=== PATIENT | female | born 1950 | race Caucasian/White ===

== ENCOUNTER → 2017-07-11 | Outpatient (CLI) | payer OTHER ==
[~2017-07-11] MED LIST: ASCO1CAP3 PO; CHOLTAB3 PO; CLCC1250 PO; EZET10TA63 PO; HYDC25 PO; HYDR-5688 PO; LEVO-371
== END | disposition home or self-care (01) ==
LOC: C.CPL 13:43
PROVIDERS: ATTEND Surgery
DX: R22.2 Localized swelling, mass and lump, trunk (principal)

== ENCOUNTER → 2017-07-14 | Day surgery (SDC) | payer OTHER ==
[2017-07-13 11:35] VITALS: Ht 157.5 cm; Wt 54.5 kg
[~2017-07-14] VITALS: Ht 157.5 cm; Wt 54.5 kg
[~2017-07-14] MED LIST changes: +ATROPINE SULFATE 0.1 MG/ML 5ML SYR IV PRN; +CEFAZOLIN 2000 MG/60 ML D5W IV SCH; +EpHEDrine SULFATE INJ 50 MG/ML AMP IV PRN; +FENTANYL CITRATE INJ 50 MCG/1 ML 2 ML VIAL IV PRN; +FENTANYL CITRATE INJ 50 MCG/1 ML 2 ML VIAL ONE; +HYDROCODONE/ACETAMOPHEN 5/325MG TAB PO PRN; +HYDROmorphone INJ 1 MG/ML SYR IV PRN; +LACTATED RINGER'S 1000ML 1,000 ML IV SCH; +LIDOCAINE HCL 1% 20 ML VIAL ONE; +LIDOCAINE HCL 2% 2 ML VIAL (20MG/ML) ONE; +MIDAZOLAM HCL 1 MG/ML 2ML VIAL ONE; +ONDANSETRON INJ 2 MG/ML 2 ML VIAL IV PRN; +PROPOFOL IV EMULSION 10 MG/ML 20 ML VIAL IV ONE; +SODIUM CHLORIDE 0.9% 1000ML 1,000 ML IV SCH
--- NOTE | 2017-07-14 07:29 | History & Physical Bridge - [place] ---
H&P Re-Evaluation Bridge Note: I have examined the patient, reviewed the History & Physical and in the interval since the performance of the History & Physical I have noted the following changes of clinical significance: No changes noted
--- NOTE | 2017-07-14 08:26 | [facility] Operative Report ---
Operative Report Operative Date Jul 14, 2017. Pre-Operative Diagnosis Left chest wall mass Post-Operative Diagnosis Same as pre-op Procedure(s) Performed Left Chest Wall Mass Excision Surgeon Dr. Frye Raise Miner Surgeon(s) None Estimated Blood Loss Minimal Findings scar tissue, adipose Specimens A. Left chest wall mass Suture: Long spivey lateral, short spivey superior Blue dye spivey deep Anesthesia local/ sedation Complication(s) None Disposition Recovery Room / PACU I attest to the content of the Intraoperative Record and any orders documented therein. Any exceptions are noted below.
--- NOTE | 2017-07-14 08:31 | Discharge Instructions-SurgCtr ---
Discharge Instructions Date of Service Jul 14, 2017. Visit Reason for Visit: Left Chest Wall Mass Discharge Discharge Diagnosis / Problem: Lt chest wall mass Discharge Goals Goal(s): Decrease discomfort, Improve function, Improve disease control Activity Recommendations Activity Limitations: as noted below Lifting Limitations: no more than 25 pounds Exercise/Sports Limitations: until after follow-up appointment May Resume Sexual Activity: when tolerated Shower/Bathe: tomorrow Driving or Machine Use: resume 1 day after discharge SPECIAL CARE INSTRUCTIONS: * Cover incisions and change daily for comfort/drainage. * May use ibuprofen for pain as tolerated. * Expect some swelling and bruising. Call your doctor if: * Temperature above 101 degrees * Pain not relieved by pain medicine ordered * There is increased drainage or redness from any incision * You have any unanswered questions or concerns [phone]. FOLLOW UP VISIT: If not already scheduled, please call the office for a follow-up visit. for next week- some sutures OFFICE PHONE NUMBER: Dr. Frye Office Anesthesia . Post Anesthesia Instructions: If you have had General Anesthesia or IV Sedation: * Do not drive today. * Resume driving when surgeon permits. * Do not make important decisions or sign legal documents today. * Call surgeon for: 1. Temperature elevations greater than 101 degrees F. 2. Uncontrollable pain. 3. Excessive bleeding. 4. Persistent nausea and vomiting. 5. Medication intolerance (nausea, vomiting or rash). * For nausea and vomiting use only clear liquids such as: tea, soda, bouillon until nausea subsides, then gradually increase diet as tolerated. * If you have any concerns or questions, call your surgeon's office. If physician is unavailable and it is an emergency, call 911 or go to the nearest emergency room. . Diet Recommendations Home Diet: resume previous diet Procedures Procedures Performed: Left Chest Wall Mass Excision Pending Studies Studies pending at discharge: no Medical Emergencies . Who to Call and When: Medical Emergencies: If at any time you feel your situation is an emergency, please call 911 immediately. . Non-Emergent Contact Non-Emergency issues call your: Primary Care Provider, Surgeon . . "Provider Documentation" section prepared by Rio Frye. .
[2017-07-14 09:00] VITALS: TEMP 36.4
--- NOTE | 2017-07-14 09:01 | OPERATIVE REPORT ---
DATE OF OPERATION: 07/14/2017 NAME OF OPERATION: Excision of left chest wall mass. PREOPERATIVE DIAGNOSIS: Left chest wall mass. POSTOPERATIVE DIAGNOSIS: Same. STAFF SURGEON: Dr. Frye. ANESTHESIA: 1% plain lidocaine with sedation. PROCEDURE: The patient was brought in the operating room and placed on the operating table in supine position. Her left chest was prepped and draped in usual fashion. The patient had a soft lipomatous type mass just above the incision in the lateral chest wall at the anterior edge of the axilla. 1% plain lidocaine was used to anesthetize the tissue. Incision was made over this area, dissecting down. There was some scar tissue superiorly which did extend to the skin; however, this was dissected away down to the muscle and then the tissue removed. It was then marked with a long silk suture lateral, short silk suture superior and blue dye on the deep margin. At this point, the tissue was closed by reapproximating the deep tissue using 2-0 plain catgut suture then the skin using 5-0 Prolene suture. As a note, if additional tissue were to be removed we would have to take probably 2 cm of skin above this incision to incorporate the prior scar tissue. I attest to the content of the Intraoperative Record and any orders documented therein. Any exception s are noted below.
--- NOTE | 2017-07-14 09:07 | Anesthesiology Progress Note ---
Anesthesia Post Op Note Date & Time Jul 14, 2017 at 09:06 Vital Signs Pain Intensity: 0 Vital Signs Past 12 Hours Date Time Temp Pulse Resp B/P (MAP) Pulse Ox O2 Delivery O2 Flow Rate FiO2 07/14/17 08:56 138/64 07/14/17 08:56 138/64 07/14/17 08:54 51 10 07/14/17 08:54 54 10 98 07/14/17 08:54 54 10 98 07/14/17 08:54 51 10 07/14/17 08:51 136/65 07/14/17 08:51 136/65 07/14/17 08:49 51 14 98 07/14/17 08:49 51 14 98 07/14/17 08:49 51 14 07/14/17 08:49 51 14 07/14/17 08:48 55 9 07/14/17 08:48 54 9 98 07/14/17 08:47 36.2 53 16 136/65 97 Room Air 07/14/17 08:46 128/60 07/14/17 08:43 53 14 98 07/14/17 08:43 53 14 07/14/17 08:40 134/61 07/14/17 08:38 54 15 07/14/17 08:38 53 15 100 07/14/17 08:36 115/65 07/14/17 08:33 52 15 07/14/17 08:33 51 15 100 07/14/17 08:31 114/62 07/14/17 08:28 59 114/70 99 07/14/17 08:28 59 07/14/17 08:28 36.4 52 16 114/70 99 Mask 6 07/14/17 06:49 36.7 57 22 148/75 (99) 99 Room Air Notes Mental Status: alert / awake / arousable, participated in evaluation Pt Amnestic to Procedure: Yes Nausea / Vomiting: adequately controlled Pain: adequately controlled Airway Patency, RR, SpO2: stable & adequate BP & HR: stable & adequate Hydration State: stable & adequate Anesthetic Complications: no major complications apparent
[2017-07-14 09:28] VITALS: BP 151/72; PULSE 50; O2SAT 98
== END | disposition home or self-care (01) ==
LOC: X.SURG 06:40
PROVIDERS: ATTEND Surgery
DX: D36.7 Benign neoplasm of other specified sites (principal); Z85.3 Personal history of malignant neoplasm of breast; Z80.9 Family history of malignant neoplasm, unspecified

== ENCOUNTER 2017-10-11 20:01 | Emergency (ER) | payer OTHER ==
[~2017-10-11] VITALS: Ht 157.5 cm; Wt 58.9 kg
[~2017-10-11 20:01] MED LIST changes: -ATROPINE SULFATE 0.1 MG/ML 5ML SYR IV PRN; -CEFAZOLIN 2000 MG/60 ML D5W IV SCH; -EpHEDrine SULFATE INJ 50 MG/ML AMP IV PRN; -FENTANYL CITRATE INJ 50 MCG/1 ML 2 ML VIAL IV PRN; -FENTANYL CITRATE INJ 50 MCG/1 ML 2 ML VIAL ONE; -HYDROCODONE/ACETAMOPHEN 5/325MG TAB PO PRN; -HYDROmorphone INJ 1 MG/ML SYR IV PRN; -LACTATED RINGER'S 1000ML 1,000 ML IV SCH; -LEVO-371; +LEVO5TAB2; -LIDOCAINE HCL 1% 20 ML VIAL ONE; -LIDOCAINE HCL 2% 2 ML VIAL (20MG/ML) ONE; -MIDAZOLAM HCL 1 MG/ML 2ML VIAL ONE; -ONDANSETRON INJ 2 MG/ML 2 ML VIAL IV PRN; -PROPOFOL IV EMULSION 10 MG/ML 20 ML VIAL IV ONE; -SODIUM CHLORIDE 0.9% 1000ML 1,000 ML IV SCH
[2017-10-11 20:04] VITALS: TEMP 36.5; Ht 157.5 cm; Wt 58.9 kg
[2017-10-11] MEDS ORDERED: CALC200T PO (20:35)
[2017-10-11] MEDS ORDERED: HYDR12.55 PO (20:35)
[2017-10-11] MEDS ORDERED: CHOL400T PO (20:35)
[2017-10-11] MEDS ORDERED: NAPR1TAB9 PO (20:35)
[2017-10-11 20:38] LABS: BASO % 0.4 %; BASO ABS # 0.02 K/uL (0-0.2); COMPLETE YES; EOS % 3.3 %; HEMATOCRIT 41.4 % (37-47); IG% 0.2 %; LYMPH % 29.3 %; LYMPH ABS # 1.44 K/uL (1.2-3.4); MEAN CELL VOLUME 92.2 fL (80-100); MEAN CORPUSCULAR HEMOGLOBIN 30.5 pg (25-34); MEAN CORPUSCULAR HGB CONC 33.1 g/dl (32-36); MEAN PLATELET VOLUME 9.7 fL (7.4-10.4); MONO % 6.3 %; NEUT % 60.5 %; PLATELET COUNT 237 K/uL (130-400); RED BLOOD COUNT 4.49 M/uL (4.2-5.4); WHITE BLOOD COUNT 4.91 K/uL (4.8-10.8)
[2017-10-11 21:00] LABS: BLOOD UREA NITROGEN 17 mg/dl (7-18); CALCIUM 9.4 mg/dl (8.5-10.1); CARBON DIOXIDE 31 mmol/L (21-32); CHLORIDE 103 mmol/L (98-107); CREATININE 0.78 mg/dl (0.60-1.20); GLUCOSE 105 mg/dl (70-99); POTASSIUM 3.5 mmol/L (3.5-5.1); SODIUM 139 mmol/L (136-145)
--- NOTE | 2017-10-11 21:04 | DIAGNOSTIC IMAGING REPORT ---
SINGLE VIEW CHEST CLINICAL HISTORY: Fever. Sepsis. FINDINGS: An AP, portable, upright chest radiograph is compared to study dated 12/24/15. The examination is degraded by portable technique and patient rotation. The cardiomediastinal silhouette is unremarkable. There is atherosclerotic calcification of the thoracic aorta. The lungs and pleural spaces are clear. No pneumothorax is seen. The skeletal structures are osteopenic. There is moderate to severe S-shaped thoracolumbar scoliosis. IMPRESSION: No active disease in the chest. Electronically signed by: Gato Chilel M.D. 10/11/2017 9:03 PM Dictated Date/Time: 10/11/2017 9:02 PM
[2017-10-11 21:05] LABS: CKMB/CK RATIO 1.3 (0-3.0)
--- NOTE | 2017-10-11 22:03 | EMERGENCY ROOM VISIT NOTE ---
History Report prepared by Phyllis: Caio Gillespie Under the Supervision of: Dr. Aravind Moulton D.O. First contact with patient: 20:12 Chief Complaint: CHEST PAIN Stated Complaint: CHEST PAIN, SHORTNESS OF BREATH History of Present Illness The patient is a 67 year old female who presents to the Emergency Room with complaints of resolved chest pain that occurred around 1800 tonight. She states that she was just watching television, and the pain lasted for around ten minutes. She notes that it felt like her chest was swelling up, she had this intense pain, and she was short of breath. She denies any light headedness or leg pain and swelling, and she states that her heart was not racing. The patient states that this has never happened before, and she has not had any recent illnesses. She reports that she has a tumor removed from her left arm in June which turned out to be benign. Source of History: patient Onset: 1800 Position: chest Symptom Intensity: intense Quality: other (swelling) Timing: resolved Associated Symptoms: + SOB Review of Systems See HPI for pertinent positives & negatives. A total of 10 systems reviewed and were otherwise negative. Past Medical & Surgical Medical Problems: (1) Breast cancer Social History Smoking Status: Never Smoker Marital Status: Housing Status: lives with family Occupation Status: retired Current/Historical Medications Scheduled Ascorbic Acid (Vitamin C), 1 CAP PO QAM Calcium Carbonate-Vitamin D (Oscal 500/200 D-3), 1 TAB PO BID Cholecalciferol (Vitamin D), 1 TAB PO DAILY Ezetimibe (Zetia), 10 MG PO QPM Hydrochlorothiazide (Hydrochlorothiazide), 1 TAB PO DAILY Naproxen (Aleve), 440 MG PO PRN UD Scheduled PRN Levocetirizine Dihydrochloride (Xyzal), for prn allergies Allergies Coded Allergies: Adhesives (Verified Allergy, Intermediate, RASH, 07/14/17) Atorvastatin (Verified Allergy, Intermediate, generalized rash, 07/14/17) Latex1 -Allergic Contact Dermititis (Verified Allergy, Intermediate, RASH , 07/14/17) Diphenhydramine (Verified Adverse Reaction, Unknown, RESTLESS LEGS, ) Uncoded Allergies: CATS (Allergy, Severe, SNEEZING, TAKES BREATH AWAY, 10/11/17) ENVIRONMENTAL (Allergy, Severe, SNEEZING, SOB, 10/11/17) Physical Exam Vital Signs Date Time Temp Pulse Resp B/P (MAP) Pulse Ox O2 Delivery O2 Flow Rate FiO2 10/11/17 22:19 64 20 125/70 97 Room Air 10/11/17 21:06 70 20 131/64 98 Room Air 10/11/17 20:37 75 10/11/17 20:24 Room Air 10/11/17 20:04 36.5 88 18 150/73 97 Room Air Physical Exam CONSTITUTIONAL/VITAL SIGNS: Reviewed / noted above. GENERAL: Non-toxic in appearance. INTEGUMENTARY: Warm, dry, and [place]. HEAD: Normocephalic. EYES: without scleral icterus or trauma. ENT/OROPHARYNX: clear and moist. LYMPHADENOPATHY/NECK: Is supple without lymphadenopathy or meningismus. RESPIRATORY: Lungs clear and equal. CARDIOVASCULAR: Regular rate and rhythm. GI/ABDOMEN: Soft and nontender. No organomegaly or pulsatile mass. No rebound or guarding. Normal bowel sounds. EXTREMITIES: Warm and well perfused. BACK: No CVA tenderness. NEUROLOGICAL: Intact without focal deficits. PSYCHIATRIC: normal affect. MUSCULOSKELETAL: Normally developed with good muscle tone. Medical Decision & Procedures ER Provider Diagnostic Interpretation: Radiology results as stated below per my review and radiologist interpretation: SINGLE VIEW CHEST CLINICAL HISTORY: Fever. Sepsis. FINDINGS: An AP, portable, upright chest radiograph is compared to study dated 12/24/15. The examination is degraded by portable technique and patient rotation. The cardiomediastinal silhouette is unremarkable. There is atherosclerotic calcification of the thoracic aorta. The lungs and pleural spaces are clear. No pneumothorax is seen. The skeletal structures are osteopenic. There is moderate to severe S-shaped thoracolumbar scoliosis. IMPRESSION: No active disease in the chest. Electronically signed by: Gato Chilel M.D. 10/11/2017 9:03 PM Dictated Date/Time: 10/11/2017 9:02 PM Laboratory Results 10/11/17 20:15 Red Blood Count 4.49, Mean Corpuscular Volume 92.2, Mean Corpuscular Hemoglobin 30.5, Mean Corpuscular Hemoglobin Concent 33.1, Mean Platelet Volume 9.7, Neutrophils (%) (Auto) 60.5, Lymphocytes (%) (Auto) 29.3, Monocytes (%) (Auto) 6.3, Eosinophils (%) (Auto) 3.3, Basophils (%) (Auto) 0.4, Neutrophils # (Auto) 2.97, Lymphocytes # (Auto) 1.44, Monocytes # (Auto) 0.31, Eosinophils # (Auto) 0.16, Basophils # (Auto) 0.02 10/11/17 20:15 Test 10/11/17 20:15 White Blood Count 4.91 K/uL (4.8-10.8) Red Blood Count 4.49 M/uL (4.2-5.4) Hemoglobin 13.7 g/dL (12.0-16.0) Hematocrit 41.4 % (37-47) Mean Corpuscular Volume 92.2 fL (80-100) Mean Corpuscular Hemoglobin 30.5 pg (25-34) Mean Corpuscular Hemoglobin Concent 33.1 g/dl (32-36) Platelet Count 237 K/uL (130-400) Mean Platelet Volume 9.7 fL (7.4-10.4) Neutrophils (%) (Auto) 60.5 % Lymphocytes (%) (Auto) 29.3 % Monocytes (%) (Auto) 6.3 % Eosinophils (%) (Auto) 3.3 % Basophils (%) (Auto) 0.4 % Neutrophils # (Auto) 2.97 K/uL (1.4-6.5) Lymphocytes # (Auto) 1.44 K/uL (1.2-3.4) Monocytes # (Auto) 0.31 K/uL (0.11-0.59) Eosinophils # (Auto) 0.16 K/uL (0-0.5) Basophils # (Auto) 0.02 K/uL (0-0.2) RDW Standard Deviation 46.7 fL (36.4-46.3) RDW Coefficient of Variation 13.8 % (11.5-14.5) Immature Granulocyte % (Auto) 0.2 % Immature Granulocyte # (Auto) 0.01 K/uL (0.00-0.02) Anion Gap 6.0 mmol/L (3-11) Est Creatinine Clear Calc Drug Dose 53.9 ml/min Estimated GFR () 89.9 Estimated GFR (Non- 77.6 BUN/Creatinine Ratio 22.0 (10-20) Calcium Level 9.4 mg/dl (8.5-10.1) Total Creatine Kinase 67 U/L (26-192) Creatine Kinase MB 0.9 ng/ml (0.5-3.6) Creatine Kinase MB Ratio 1.3 (0-3.0) Troponin I < 0.015 ng/ml (0-0.045) Lipase 185 U/L (73-393) Laboratory results as stated above per my review. ECG Indication: chest pain Rate (beats per minute): 75 Rhythm: normal sinus Findings: no ectopy, other (No acute injury) ED Course 2011: Previous medical records were reviewed. The patient was evaluated in room B5. A complete history and physical examination was performed. 2204: On reevaluation, the patient is stable and doing well. I discussed the results and findings with the patient. She verbalized agreement of the treatment plan. She was discharged home. Medical Decision the differential was considered includes acute myocardial infarction, acute coronary syndrome, myocarditis, pericarditis, pericardial effusions /tamponad, esophageal perforation, thoracic aortic dissection, pulmonary embolism, pneumonia, pneumothorax, pancreatitis, shingles, acute cholecystitis, perforated abdominal viscus. This is a 67-year-old female who presents to the ED with a chief complaint of a fullness sensation in her chest associated with some shortness of breath that lasted for about 10 minutes and occurred around 1800 hrs. She denies any additional symptoms. She has not had these symptoms before. She states that she was watching TV when it occurred. The vital signs are stable. Physical exam reveals no significant abnormalities. Twelve-lead EKG reveals a normal sinus rhythm. No acute ischemic changes or dysrhythmia. CBC is normal, chemistry panel was unremarkable and troponin is negative. Chest x-ray did not show acute disease. The patient was told the results of the tests. She is felt to be stable for discharge and outpatient follow-up. Medication Reconcilliation Current Medication List: was personally reviewed by me Blood Pressure Screening Patient's blood pressure: Normal blood pressure Impression Primary Impression: Substernal precordial chest pain Scribe Attestation The scribe's documentation has been prepared under my direction and personally reviewed by me in its entirety. I confirm that the note above accurately reflects all work, treatment, procedures, and medical decision making performed by me. Departure Information Dispostion Home / Self-Care Referrals Vandana Hurtado D.O. (PCP) Forms Call Back Authorization, HOME CARE DOCUMENTATION FORM, IMPORTANT VISIT INFORMATION Patient Instructions My [facility] Additional Instructions Follow-up with your doctor for further care and evaluation in 1-2 days. Return to the emergency department for worsening or new symptoms or any concerns. You have been examined and treated today on an emergency basis only. This is not a substitute for, or an effort to provide, complete comprehensive medical care. It is impossible to recognize and treat all injuries or illnesses in a single emergency department visit. It is therefore important that you follow up closely with your doctor. Call as soon as possible for an appointment.
[2017-10-11 22:19] VITALS: BP 125/70; PULSE 64; O2SAT 97
== END 2017-10-11 22:23 | disposition home or self-care (01) ==
LOC: C.EDB 20:02
DX: R07.2 Precordial pain (principal); Z85.3 Personal history of malignant neoplasm of breast

== ENCOUNTER 2025-02-08 15:16 | Inpatient (IN) ==
--- OUTSIDE RECORDS SUMMARY | 2025-02-08 15:20 | External Medical Summary | Summary of Care ---
Author Name Unknown Organization [facility] Address [address] [place] [address] Phone [phone] Care Team Providers Care Tuyere Fitter Name Role Phone BryantVandana Primary Care Provider Reason for Visit * Reason Comments Mohs Surgery Pt presents today fo r Mohs surgery on R frontal scalp * Evaluate & Treat - Unlimited Visits (Within 30 days (routine)) - Authorized Specialty Diagnoses / Procedures Referred By Davonte tapia Referred To Contact Dermatology Diagnoses Squamous cell carcinoma in situ (SCCIS) of scalp [facility] [address] Phone: tel: fax: Referral ID Status Reason Start Date Expiration Date Visits Requested Visits Authorized [id number] Authorized Specialty Services Required 01/15/[phone] Encounter Details Date Type Department Care Team (Late st Contact Info) Description 01/16/2025 7:30 AM EST Office Visit [facility] [address] [place] [address] [facility]uro [facility] [address] Squamous cell carcinoma in situ (SCCIS) of scalp* Allergies Active Allergy Reactions Criticality Noted Date Comments Atorvastatin 01/30/2002 Lipitor-rash Diphenhydramine Other (Please comment) 10/22/20 19 Restless legs Latex 10/26/2020 Pollen Extract 10/26/2020 Simvastatin 04/23/2002 rash documented as of this encounter (statuses as of 01/30/2025) Medications CALCIUM CAPS 500 MG OR 2/day 03/04/20 02 Active HYDROCHLOROTHIAZIDE 12.5 MG PO CAPS One pill by mouth daily 05/16/20 11 Active ZETIA 10 MG PO TABSIndications:Dys lipidemia, goal to be determined TAKE 1 TABLET EVERY DAY 30 Tab 5 01/23/20 12 Active Additional Information Patient not taking.Reported on 01/03/2025 VITAMIN D 1000 UNITS PO CAPS 1 cap daily Acti ve Levocetirizine Dihydrochloride 5 MG Tablet 1 tab daily when needed 08/06/20 15 Active Ascorbic Acid (VITAMIN C) 100 MG Tablet Take 1 Tablet by mouth in the morning. Active Fluorouracil 5 % External Cream (Efudex)Indications :AK (actinic keratosis) apply to rough patches on the forearms and dorsal hands daily x 2-4 weeks. 40 g 1 04/13/20 21 Active Additional Information Patient not taking.Reported on 01/03/2025 Mupirocin 2 % External Ointment (Bactroban) Apply to affected areas on dorsal hands/arms twice daily as needed 22 g 01/28/20 22 Active Additional Information Patient not taking.Reported on 02/08/2024 Triamcinolone Acetonide 0.1 % External Ointment (Aristocort)Indicat ions:Actinic keratosis apply to affected areas on hands twice daily as needed 80 g 1 01/13/20 23 Active Additional Information Patient not taking.Reported on 06/22/2023 hydrOXYzine HCl 25 MG Oral Tablet Take 1 Tablet by mouth at bedtime. As needed for itching 30 Tablet 5 01/24/20 23 Active Fluocinonide 0.05 % External CreamIndications:De rmatitis Apply to itching spots on the legs as needed for itching. 30 g 1 10/10/20 23 Active Additional Information Patient not taking.Reported on 01/03/2025 Mupirocin 2 % External Ointment (Bactroban) Apply to wound on left lower leg with bandage daily until healed 22 g 07/23/20 24 Active Additional Information Patient not taking.Reported on 01/03/2025 documented as of this encounter (statuses as of 01/30/2025) Active Problems Problem Noted Date Diagnosed Date History of nonmelanoma skin cancer 08/14/2017 Dyslipidemia, goal LDL below 160 01/11/2012 M-NEOPLASM, FEMALE BREAST NOS- LEFT/ Bilateral m astectomy 05/16/2011 NONALLERGIC RHINITIS 08/27/2004 Tibial torsion 05/03/2004 Menopause 10/05/1998 Edema 02/23/1998 documented as of this encounter (statuses as of 01/30/2025) Resolved Problems Problem Noted Date Diagnosed Date Resolved Date ADVANCE DIRECTIVE INFORMATION 01/18/2006 09/23/2024 Overview (01/18/2006): No, Advance Directive brochure given to patient. Dyslipidemia, goal to be determined 01/14/2005 01/11/2012 documented as of this encounter (statuses as of 01/30/2025) Immunizations Name Administration Dates Next Due COVID-19 mRNA, LNP-s, No Pre serve, 2-Dose Series (Pfizer) 02/15/2021,01/19/2021 PPD 01/11/2012 Pneumococcal Polysaccharide PPV23 (Pneumovax) Seasonal Influenza Vac., MDV, IM, 0.5 mL (Fluzon e) 09/21/2010,08/27/2009 TDAP, Age 7 and older, IM (Adacel) 01/11/2012 documented as of this encounter Social History Tobacco Use Types Packs/Day Years Used Date Smoking Tobacco: Never Smokeless Tobacco: Never Alcohol Use Standard Drinks/Week Comments Yes 0 (1 standard drink = 0.6 oz pur e alcohol) occassional Comments No Sex and Gender Information Value Date Recorded Sex Assigned at Not on file Legal Sex Female 7:12 AM EST Gender Identity Not on file Sexual Orientation Not on file documented as of this encounter Last Filed Vital Signs Vital Sign Reading Time Taken Comments Blood Pressure - - Pulse - - Temperature 36.4 C (97.5 F) 01/16/2025 7:29 AM ES T Respiratory Rate - - Oxygen Saturation - - Inhaled Oxygen Concentration - - Weight - - Height - - Body Mass Index - - documented in this encounter Progress Notes * Kailey Mauro MD - 01/16/2025 7:30 AM EST [facility] Mohs Surgery Note (See separate transcribed operative note for further detail) History: Cat Christensen is a 74 year old patient seen for evaluation and management of the following lesion: B. Skin, right frontal scalp, shave: Squamous cell carcinoma, at least in situ, with deep follicular extension (see comment) Comment: The lesion is transected at the deep margin limiting evaluation of the base. Patient also has several nearby lesions of concern on her scalp. Patient problem list reviewed. Patient medication/allergy lists reviewed. Examination: Cat Christensen is alert, oriented and appears well and in no distress. The patient's skin is remarkable for: Right frontal scalp: 2.5 x 2.0 cm eroded plaque Right central scalp: 1.9 x 1.3 cm scaly plaque Right frontal scalp, medial: 1.3 x 1.0 cm scaly plaque Right hairline: 1.6 cm x 1.2 cm pink scaly eroded plaque Impression/Plan: squamous cell carcinoma in situ - right frontal scalp MMS Standard Mohs micrographic technique was utilized to treat this tumor. Microscopic examination of the specimen allowed the Mohs surgeon, whose dual role is to function as both surgeon and pathologist, to precisely identify the location of any remaining tumor or ascertain that the tissue margins were free of tumor. This process of excision of remaining tumor, mapping, and histologic exam was repeated until the tumor was excised completely. Patient identified, procedure verified, site identified and verified with the patient. Time out completed. Surgical removal of the lesion discussed with the patient (risks and benefits, including scarring and the possibility of infection, bleeding, recurrence or potential for further treatment). I have specifically identified the site with the patient. I have discussed the fact that the patient will have a scar after the procedure regardless of granulation or repair with sutures. I have discussed that the repair options can range from granulation in some cases to linear or curvilinear closures to larger flaps or grafts. There is a risk of injury to nerves causing temporary or permanent numbness or the inability to move muscles fully. Questions answered and verbal and written consent was obtained. 2 stage(s) Anesthetic: 0.05% lidocaine with 1:100,000 epinephrine. Repair: Purse-string and directional guiding sutures (layered repair) (see separate operative report for details) Absorbable sutures 2. Skin lesion, right central scalp. DDx included actinic keratosis vs squamous cell carcinoma in situ/squamous cell carcinoma - lesion biopsied today, read in Mohs lab on frozen sections, diagnosed as squamous cell carcinoma in situ, and subsequently treated with Mohs micrographic surgery today Shave Biopsy of the lesion noted above to establish and confirm diagnosis. The procedure, risks, benefits, alternatives and expected outcomes were discussed with the patient and consent was obtained.Time out called. Patient identified, procedure verified, site identified and verified. Patient and staff present in agreement. Area prepped with alcohol and anesthetized with 0.5% lidocaine with epinephrine at 1:200,000 concentration. Biopsy of lesion performed. 20% AlCl and bandaging applied. Specimen sent to Mohs lab for frozen sections. Specimen # [id number] BIOPSY NUMBER/TYPE/SITE: [id number], shave biopsy, right central scalp GROSS DESCRIPTION OF SPECIMEN: Received is a specimen of tissue labelled corresponding to the site listed. MICROSCOPIC DESCRIPTION OF SPECIMEN: Focal epidermal full-thickness squamous atypia is present in this specimen. Dermis is not affected in sections examined. MICROSCOPIC DIAGNOSIS: squamous cell drvdqpywh-uy-zajn squamous cell jhnwytpnu-we-ynry - right central scalp MMS Standard Mohs micrographic technique was utilized to treat this tumor. Microscopic examination of the specimen allowed the Mohs surgeon, whose dual role is to function as both surgeon and pathologist, to precisely identify the location of any remaining tumor or ascertain that the tissue margins were free of tumor. This process of excision of remaining tumor, mapping, and histologic exam was repeated until the tumor was excised completely. Patient identified, procedure verified, site identified and verified with the patient. Time out completed. Surgical removal of the lesion discussed with the patient (risks and benefits, including possibility of scarring, infection, recurrence or potential for further treatment). I have specifically identified the site with the patient. I have discussed the fact that the patient will have a scar after the procedure regardless of granulation or repair with sutures. I have discussed that the repair options can range from granulation in some cases to linear or curvilinear closures to larger flaps or grafts. There is a risk of injury to nerves causing temporary or permanent numbness or the inability to move muscles fully. Questions answered and verbal and written consent was obtained. 1 stage(s) Anesthetic: 0.05% lidocaine with 1:100,000 epinephrine. Repair: purse-string suture and directional guiding sutures (layered repair) (see separate operative report for details) Absorbable sutures 3. Skin lesion, right frontal scalp, medial. DDx included actinic keratosis vs squamous cell carcinoma in situ/squamous cell carcinoma - lesion biopsied today, read in Mohs lab on frozen sections, diagnosed as squamous cell carcinoma in situ, and subsequently treated with Mohs micrographic surgery today Shave Biopsy of the lesion noted above to establish and confirm diagnosis. The procedure, risks, benefits, alternatives and expected outcomes were discussed with the patient and consent was obtained.Time out called. Patient identified, procedure verified, site identified and verified. Patient and staff present in agreement. Area prepped with alcohol and anesthetized with 0.5% lidocaine with epinephrine at 1:200,000 concentration. Biopsy of lesion performed. 20% AlCl and bandaging applied. Specimen sent to Mohs lab for frozen sections. Specimen # [id number] BIOPSY NUMBER/TYPE/SITE: [id number], shave biopsy, right frontal scalp, medial GROSS DESCRIPTION OF SPECIMEN: Received is a specimen of tissue labelled corresponding to the site listed. MICROSCOPIC DESCRIPTION OF SPECIMEN: Focal epidermal full-thickness squamous atypia is present in this specimen. Dermis is not affected in sections examined. MICROSCOPIC DIAGNOSIS: squamous cell ecqxyjvqj-ar-dwql squamous cell cavwavybq-ze-azan - right frontal scalp, medial MMS Standard Mohs micrographic technique was utilized to treat this tumor. Microscopic examination of the specimen allowed the Mohs surgeon, whose dual role is to function as both surgeon and pathologist, to precisely identify the location of any remaining tumor or ascertain that the tissue margins were free of tumor. This process of excision of remaining tumor, mapping, and histologic exam was repeated until the tumor was excised completely. Patient identified, procedure verified, site identified and verified with the patient. Time out completed. Surgical removal of the lesion discussed with the patient (risks and benefits, including possibility of scarring, infection, recurrence or potential for further treatment). I have specifically identified the site with the patient. I have discussed the fact that the patient will have a scar after the procedure regardless of granulation or repair with sutures. I have discussed that the repair options can range from granulation in some cases to linear or curvilinear closures to larger flaps or grafts. There is a risk of injury to nerves causing temporary or permanent numbness or the inability to move muscles fully. Questions answered and verbal and written consent was obtained. 2 stage(s) Anesthetic: 0.05% lidocaine with 1:100,000 epinephrine. Repair: purse-string suture and directional guiding sutures (layered repair) (see separate operative report for details) Absorbable sutures 4. Skin lesion, right hairline. DDx included actinic keratosis vs squamous cell carcinoma in situ/squamous cell carcinoma - lesion biopsied today, read in Mohs lab on frozen sections, diagnosed as squamous cell carcinoma in situ, and subsequently treated with curettage today Shave Biopsy of the lesion noted above to establish and confirm diagnosis. The procedure, risks, benefits, alternatives and expected outcomes were discussed with the patient and consent was obtained.Time out called. Patient identified, procedure verified, site identified and verified. Patient and staff present in agreement. Area prepped with alcohol and anesthetized with 0.5% lidocaine with epinephrine at 1:200,000 concentration. Biopsy of lesion performed. 20% AlCl and bandaging applied. Specimen sent to Mohs lab for frozen sections. Specimen # [id number] BIOPSY NUMBER/TYPE/SITE: [id number], shave biopsy, right hairline GROSS DESCRIPTION OF SPECIMEN: Received is a specimen of tissue labelled corresponding to the site listed. MICROSCOPIC DESCRIPTION OF SPECIMEN: Focal epidermal full-thickness squamous atypia is present in this specimen. Dermis is not affected in sections examined. MICROSCOPIC DIAGNOSIS: squamous cell lhdameadl-qy-tmlt squamous cell kyktebpad-ir-xdvd - right hairline Curettage of the lesion . The procedure, risks, benefits, alternatives and expected outcomes were discussed with the patient and consent was obtained. Patient identified, procedure verified, site identified and verified. Confirmed immediately prior to procedure. Area prepped with alcohol and anesthetized using 0.5% lidocaine with epinephrine at 1:200,000 concentration. Curettage performed for cure. 20% AlCl and bandaging applied. Patient instructed in routine post-op care. Size of lesion: 1.6 cm Size of wound after curettage: 2.2 cm Wound care was discussed verbally, demonstrated and printed wound instructions given as well as wound care supplies. Patient instructed to call with questions or concerns. Personal contact information provided. Follow-up: 4 weeks Kailey Mauro MD Associate, Mohs Micrographic Surgery & Dermatologic Surgery 01/16/2025 documented in this encounter Nursing Notes * Margo Borrero LPN - 01/16/2025 7:30 AM EST Chief Complaint Patient presents with Mohs Surgery Pt presents today for Mohs surgery on R frontal scalp Referral Doctor: Elie Hypertension History: Yes, refer to medication information for treatment. Diabetes History: No Thyroid History: No Bleeding Tendency: No Artificial Valve or Joint: no Pacemaker: no Defibrillator: no Hepatitis/HIV Exposure: No Smoking: no Consent signed yes documented in this encounter Plan of Treatment Scheduled Referrals Name Type Priority Associated Diagnoses Orde r Schedule [facility] SURGERY REFERRAL OP Referral Within 30 days (routine) Squamous cell carcinoma in situ (SCCIS) of scalp Ordered: 01/15/2025 Health Maintenance Due Date Last Done Comments Depression Screening 1962 Hepatitis C Screening 1966 Zoster Vaccines (1 of 2) 1998 DXA Scan 12/22/2012 12/22/2005, 12/2005, 11/15/2003, Additional history exists Pneumococcal Vaccine: 50+ Years (3 of 3 - PCV20 or PCV21) 05/24/2021 05/24/2016, 09/21/2010 DTap/Tdap Vaccines (2 - Td or Tdap) 01/11/2022 01/11/2012, 03/19/2001 COVID-19 Vaccine (4 - season) 2024 09/14/2021, 02/15/2021, 01/19/2021 Influenza Vaccine (FLU shot) (#1) 2024 09/02/2013, 07/31/2012, 09/21/2010, Additional history exists Sigmoidoscopy Discontinued 04/02/2002 Colonoscopy Discontinued 01/24/2012, 04/02/2002 Colorectal Cancer Screening Discontinued Cologuard Discontinued Fecal Occult Blood Test Discontinued HPV (Gardasil) Vaccine Aged Out No lo nger eligible based on patient's age to complete this topic Hepatitis B Vaccine Aged Out No longe r eligible based on patient's age to complete this topic MENINGOCOCCAL (MENACTRA/MENVEO) Aged Out No longer eligible based on patient's age to complete this topic Meningitis B Vaccine (Bexsero/Trumemba) Aged Out No longer eligible based on patient's age to complete this topic documented as of this encounter Medical Devices Not on filedocumented as of this encounter Visit Diagnoses Diagnosis Squamous cell carcinoma in situ (SCCIS) of scalp- Primary documented in this encounter Care Teams Tuyere Fitter Relationship Specialty Start Date End Date Vandana Hurtado DO [address] [facility] [address] [place] [address] PCP - General Family Medicine 07/24/13 documented as of this encounter
--- OUTSIDE RECORDS SUMMARY | 2025-02-08 15:21 | External Medical Summary | Summary of Care ---
Author Name Unknown Organization [facility] Address [address] [place] [address] Phone [phone] Care Team Providers Care Sole Dyer Name Role Phone BryantVandana Primary Care Provider Reason for Visit * Reason Onset Date Comments Advice 01/13/2025 Encounter Details Date Type Department Care Team (Late st Contact Info) Description 01/13/2025 [facility] [place] [address] Kailey Mauro MD 200 [facility] [place] [address] Advice Allergies Active Allergy Reactions Criticality Noted Date Comments Atorvastatin 01/30/2002 Lipitor-rash Diphenhydramine Other (Please comment) 10/22/20 19 Restless legs Latex 10/26/2020 Pollen Extract 10/26/2020 Simvastatin 04/23/2002 rash documented as of this encounter (statuses as of 01/15/2025) Medications CALCIUM CAPS 500 MG OR 2/day [...] as of this encounter (statuses as of 01/15/2025) Active Problems Problem Noted Date Diagnosed Date History of nonmelanoma skin cancer 08/14/2017 Dyslipidemia, goal LDL below 160 01/11/2012 M-NEOPLASM, FEMALE BREAST NOS- LEFT/ Bilateral m astectomy 05/16/2011 NONALLERGIC RHINITIS 08/27/2004 Tibial torsion 05/03/2004 Menopause 10/05/1998 Edema 02/23/1998 documented as of this encounter (statuses as of 01/15/2025) Resolved Problems Problem Noted Date Diagnosed Date Resolved Date ADVANCE DIRECTIVE INFORMATION 01/18/2006 09/23/2024 Overview (01/18/2006): No, Advance Directive brochure given to patient. Dyslipidemia, goal to be determined 01/14/2005 01/11/2012 documented as of this encounter (statuses as of 01/15/2025) Immunizations Name Administration Dates Next Due COVID-19 mRNA, LNP-s, No Pre serve, 2-Dose Series (Pfizer) 02/15/2021,01/19/2021 PPD 01/11/2012 Pneumococcal Polysaccharide PPV23 (Pneumovax) Seasonal Influenza Vac., MDV, IM, 0.5 mL (Fluzon e) 09/21/2010,08/27/2009 TD - Tetanus/Diptheria (ADULT) 03/19/2001 TDAP, Age 7 and older, IM (Adacel) [...] on file documented as of this encounter Miscellaneous Notes * Telephone Encounter - Lindsey Rivera OSA - 01/14/2025 3:45 PM EST [facility] wants to speak to Dr mauro before scheduling [facility]. P: [phone] * Telephone Encounter - Kailey Mauro MD - 01/13/2025 5:26 PM EST Attempted to call patient, no answer. Will try back later. Kailey Mauro MD 01/13/2025 5:26 PM * Telephone Encounter - Emelyn Steinberg LPN - 01/13/2025 8:58 AM EST I spoke to Cat and she stated that she has some questions regarding the MOH's surgery. She would like to speak to a provider when available as she is unsure about this course of treatment. Are you able to call Cat? Thank you. documented in this encounter Plan of Treatment Health Maintenance Due Date Last Done Comments Depression Screening 1960 Hepatitis C Screening 1966 Zoster Vaccines (1 of 2) 1998 DXA Scan 12/22/2012 12/22/2005, 12/2005, 11/15/2003, Additional history exists Pneumococcal Vaccine: 50+ Years (3 of 3 - PCV20 or PCV21) 05/24/2021 05/24/2016, 09/21/2010 DTap/Tdap Vaccines (2 - Td or Tdap) 01/11/2022 01/11/2012, 03/19/2001 COVID-19 Vaccine (3 - season) 2024 02/15/2021, 01/19/2021 Influenza Vaccine (FLU shot) (#1) [...] Not on filedocumented as of this encounter Care Teams Sole Dyer Relationship Specialty Start Date End Date Vandana Hurtado DO [address] [place] [address] Dr [address] [place] [address], [place] [address] PCP - General Family Medicine 07/24/13 documented as of this encounter
--- OUTSIDE RECORDS SUMMARY | 2025-02-08 15:21 | External Medical Summary | Summary of Care ---
Author Name Unknown Organization [facility] Address [address] [place] [address] Phone [phone] Care Team Providers Care Agriculture Sales Account Manager Name Role Phone BryantVandana Primary Care Provider Reason for Referral * Evaluate & Treat - Unlimited Visits (Within 30 days (routine)) - Authorized Specialty Diagnoses / Procedures Referred By Davonte tapia Referred To Contact Dermatology Diagnoses Squamous cell carcinoma in situ (SCCIS) of scalp Harpreet Mauro MD [address] [place] [address] Phone: tel: fax: Referral ID Status Reason Start Date Expiration Date Visits Requested Visits Authorized [id number] Authorized Specialty Services Required 01/15/[phone] Question Answer Referral Priority Within 30 days (routine) Are you referring the patient for Mohs Surgery and have a current positive skin cancer biopsy result? Yes Where should this appointment be scheduled? [facility] Type of Procedure [facility] Surgery Comments B. Skin, right frontal scalp, shave: Squamous cell carcinoma, at least in situ, with deep follicular extension (see comment) Comment: The lesion is transected at the deep margin limiting evaluation of the base. Reason for Visit * Reason Onset Date Comments Advice 01/13/2025 Encounter Details Date Type Department Care Team (Late st Contact Info) Description 01/13/2025 Telephone Dermatology [facility] [address] [place] [address] Harpreet Mauro MD [address] [place] [address] Advice Allergies Active Allergy Reactions Criticality Noted [...] as of this encounter Miscellaneous Notes * Addendum Note - Harpreet Mauro MD - 01/15/2025 6:26 AM ESTAddended by: HARPREET MAURO on: 01/15/2025 06:26 AM Modules accepted: Orders * Telephone Encounter - Harpreet Mauro MD - 01/15/2025 6:23 AM EST Spoke w patient on phone 01/14. Will schedule Mohs surgery 01/16 at 7:30 am. Can eval (and bx if indicated) other lesions of concern on scalp at that time. Harpreet Mauro MD * Telephone Encounter - Lindsey Rivera OSA - 01/14/2025 3:45 PM EST [facility] Pt wants to speak to Dr mauro before scheduling MOHS. P: [phone] * Telephone Encounter - Harpreet Mauro MD - 01/13/2025 5:26 PM EST Attempted to call patient, no answer. Will try back later. Harpreet Mauro MD 01/13/2025 5:26 PM * Telephone [...] Primary documented in this encounter Care Teams Agriculture Sales Account Manager Relationship Specialty Start Date End Date Vandana Hurtado DO [address] [facility] [address] [place] [address], [place] [address] PCP - General Family Medicine 07/24/13 documented as of this encounter
--- OUTSIDE RECORDS SUMMARY | 2025-02-08 15:21 | External Medical Summary | Summary of Care ---
Author Name Unknown Organization [facility] Address [address] [place] [address] Phone [phone] Care Team Providers Care Sweet Dough Mixer Name Role Phone MarioAnisha causey Primary Care Provider Reason for Visit * Reason Comments Skin Check Pt presents for rout ine skin check and with c/o lesion on left thumb as well as several recurring AKs on scalp that were previously treated with cryo.Hx: NMSC Encounter Details Date Type Department Care Team (Late st Contact Info) Description 01/03/2025 9:00 AM EST Office Visit Dermatology [place] [facility] [place] [address] [facility] [place] [address] Antonio Delgadillo MD [address] [facility] [place] [address] Actinic skin damage*; Skin neoplasm; Seborrheic keratoses; Hx of basal cell carcinoma; Hx of squamous cell carcinoma; Scar; Actinic keratosis Allergies Active Allergy Reactions Criticality Noted Date Comments Atorvastatin 01/30/2002 Lipitor-rash Diphenhydramine Other (Please comment) 10/22/20 19 Restless legs Latex 10/26/2020 Pollen Extract 10/26/2020 Simvastatin 04/23/2002 rash documented as of this encounter (statuses as of 01/03/2025) Medications CALCIUM CAPS 500 MG OR 2/day [...] as of this encounter (statuses as of 01/03/2025) Active Problems Problem Noted Date Diagnosed Date History of nonmelanoma skin cancer 08/14/2017 Dyslipidemia, goal LDL below 160 01/11/2012 M-NEOPLASM, FEMALE BREAST NOS- LEFT/ Bilateral m astectomy 05/16/2011 NONALLERGIC RHINITIS 08/27/2004 Tibial torsion 05/03/2004 Menopause 10/05/1998 Edema 02/23/1998 documented as of this encounter (statuses as of 01/03/2025) Resolved Problems Problem Noted Date Diagnosed Date Resolved Date ADVANCE DIRECTIVE INFORMATION 01/18/2006 09/23/2024 Overview (01/18/2006): No, Advance Directive brochure given to patient. Dyslipidemia, goal to be determined 01/14/2005 01/11/2012 documented as of this encounter (statuses as of 01/03/2025) Immunizations Name Administration Dates Next Due COVID-19 [...] on file documented as of this encounter Progress Notes * Antonio Delgadillo MD - 01/03/2025 9:01 AM EST SUBJECTIVE: Chief Complaint: Chief Complaint Patient presents with Skin Check Pt presents for routine skin check and with c/o lesion on left thumb as well as several recurring AKs on scalp that were previously treated with cryo. Hx: NMSC HPI: Cat Christensen is a 74 year old female seen for a full skin check for history of nonmelanoma skin cancer. Prior Dr. Mauro patient. New patient to me Wondering if her skin cancers are due [place] DERMATOLOGIC HISTORY: Pt has a history of numerous nonmelanoma skin cancers-most recently: squamous cell carcinoma in situ, left lower leg, Mohs 2023 Basal cell carcinoma, left clavicle, curettage 2023 Squamous cell carcinoma left lower leg Mohs 2022 Basal cell carcinoma right upper back Mohs 2021 Basal cell carcinoma, superficial type, right upper back, lateral/superior, curettage Basal cell carcinoma, at least nodular type, right upper arm, curettage Basal cell carcinoma, superficial type, left lower back, curettage 2020 Basal cell carcinoma, left lower back, curettage March 2021 Basal cell carcinoma, left anterior shoulder, curettage March 2021 SCC on the left thigh 12/10 s/p excision,BCC left mid back 01/09, BCC on the right lower back 04/07, hyperkeratotic actinic keratosis on the left 2nd MCP 04/08,SCC in situ right cheek 10/08, BCC on the left mid back 04/07, BCC left lower back 04/07,BCC left lower back 08/06, BCC left upper arm 08/06, BCC right chest 02/04, BCC right thigh 02/04. Treated with Efudex cream in the past to the hands, feet and lower legs. REVIEW OF SYSTEMS: CONSTITUTIONAL: negative SKIN: No new or changing moles or rashes other than those noted in HPI HEME/LYMPH: No new or enlarging lumps or bumps OBJECTIVE: GEN: Healthy, alert, no distress, appears oriented, pleasant, and cooperative SKIN: Detailed exam of hair, face, trunk, arms, and legs A. Right frontal hairline - 5mm hyperkeratotic pink papule - HAK vs scc B. Right frontal scalp - 1.5cm hyperkeratotic pink plaque - HAK vs SCCis C. Left medial aggarwal - 3mm hyperkeratotic pink papule - HAK/SCC, r/o hypertrophic LP L forehead, crown, left forearm x3, left aggarwal x3, right aggarwal x2, r forearm x2, r nasal sidewall -13gritty erythematous macules/papules Well-healed scar(s) at primary site(s) without evidence of recurrence Scattered on face, chest, back - diffuse mottled hypopigmented and hyperpigmented macules without significant irregularity. Associated telangiectasias At the trunk and extremities are several scattered levy/brown hyperkeratotic stuck on appearing waxypapules. ASSESSMENT/PLAN: Skin neoplasms - Shave/curette of all 3 A. Right frontal hairline - 5mm hyperkeratotic pink papule - HAK vs scc B. Right frontal scalp - 1.5cm hyperkeratotic pink plaque - HAK vs SCCis C. Left medial aggarwal - 3mm hyperkeratotic pink papule - HAK/SCC, r/o hypertrophic LP Procedure - Shave/Curette HOLD FOR PATH Shave of the lesion(s) noted above to remove and confirm diagnosis. The procedure, risks, benefits,alternatives and expected outcomes were discussed with the patient and consent was obtained. Time out called. Patient identified, procedure verified, site(s) identified and verified. Patient and staff present in agreement. Area prepped with alcohol and anesthetized using 0.5% lidocaine with epinephrine at 1:200,000 concentration. Shave of lesion(s) performed. 20% AlCl and bandaging applied. Specimen(s) sent to pathology. Patient instructed in routine post-op care. The lesion(s) was/were curetted for cure. Size of lesion A: 5mm Size of wound after currettage: 13mm Size of lesion B: 15mm Size of wound after currettage: 23mm Size of lesion C: 3mm Size of wound after currettage: 11mm Actinic keratosis -The diagnosis and malignant potential of the lesion was explained. Treatment options were reviewedincluding cryotherapy, topical medications, and observation. All questions were addressed. Procedure - Cryotherapy (Premalignant Destruction) -The patient would like to proceed with cryosurgery;Cryosurgery explained to the patient, consent obtained, patient, site and procedure verified, and then cryotherapy was performed with Liquid Nitrogen via cryo spray unit to 13 lesions. Location noted in physical exam. Post op course explained. -Discussed that if any of these lesions fail to completely resolve after treatment patient should call me for re-evaluation Scar(s), History of Nonmelanoma Skin Cancer - Well healed scar(s) with no evidence of recurrence - Recommended periodic skin exams and instructed to call clinic if patient notices any changing lesions, including rapid enlargement, changes in color or shape or symptoms, bleeding, or other concerns. The common features and behavior of non-melanoma skin cancers (e.g. basal cell carcinoma/squamouscell carcinoma) as well as the features of melanoma were also reviewed. -Daily sun protection recommended including physical (i.e. clothing) and chemical blockers. Broad spectrum sunscreens with at least SPF 30 for UVA and UVA protection were recommended. Chronic Actinic Damage - Discussed that skin changes are due to chronic sun exposure. - Daily sun protection recommended as discussed above Seborrheic keratoses - The benign nature of these lesions was discussed with the patient and that no treatment is indicated today. Follow-up: Return in about 6 months (around 07/03/2025). | Check-out note: High priority complex Antonio Delgadillo MD REF: SELF NO STRE[address] ADDRESS AVAILABLE PCP: ANISHA ROACH [address] [place] [address] [place] [address] [phone] documented in this encounter Nursing Notes * Shelby Lema CMA - 01/03/2025 8:49 AM EST Chief Complaint Patient presents with Skin Check Pt presents for routine skin check and with c/o lesion on left thumb as well as several recurring AKs on scalp that were previously treated with cryo. Hx: NMSC documented in this encounter Plan of Treatment Pending Results Name Type Priority Associated Diagnoses Date /Time SURGICAL PATHOLOGY Pathology Routine Skin neoplasm 01/03/2025 9:25 AM EST Health Maintenance Due Date Last Done Comments [...] as of this encounter Visit Diagnoses Diagnosis Actinic skin damage- Primary Other dermatitis due to solar radiation Skin neoplasm Neoplasm of unspecified nature of bone, soft tissue, and skin Seborrheic keratoses Hx of basal cell carcinoma Personal history of other malignant neoplasm of skin Hx of squamous cell carcinoma Personal history of malignant neoplasm of other site Scar Scar condition and fibrosis of skin Actinic keratosis documented in this encounter Care Teams Sweet Dough Mixer Relationship Specialty Start Date End Date Anisha Roach DO [address] [place] [address] PCP - General Family Medicine 07/24/13 documented as of this encounter"
--- OUTSIDE RECORDS SUMMARY | 2025-02-08 15:21 | External Medical Summary | Summary of Care ---
Author Name Unknown Organization [facility] Address [address] [place] [address] Phone [phone] Care Team Providers Care Director Radio Name Role Phone BryantVandana Primary Care Provider Reason for Visit * Reason Onset Date Comments Advice 01/13/2025 Encounter Details Date Type Department Care Team (Late st Contact Info) Description [facility] [address] [facility] [place] [address] Kailey Mauro MD [address] [facility] [place] [address] Advice Allergies Active Allergy Reactions Criticality Noted Date Comments Atorvastatin 01/30/2002 Lipitor-rash Diphenhydramine Other (Please comment) 10/22/20 19 Restless legs Latex 10/26/2020 Pollen Extract 10/26/2020 Simvastatin 04/23/2002 rash documented as of this encounter (statuses as of 01/14/2025) Medications CALCIUM CAPS 500 MG OR 2/day [...] as of this encounter (statuses as of 01/14/2025) Active Problems Problem Noted Date Diagnosed Date History of nonmelanoma skin cancer 08/14/2017 Dyslipidemia, goal LDL below 160 01/11/2012 M-NEOPLASM, FEMALE BREAST NOS- LEFT/ Bilateral m astectomy 05/16/2011 NONALLERGIC RHINITIS 08/27/2004 Tibial torsion 05/03/2004 Menopause 10/05/1998 Edema 02/23/1998 documented as of this encounter (statuses as of 01/14/2025) Resolved Problems Problem Noted Date Diagnosed Date Resolved Date ADVANCE DIRECTIVE INFORMATION 01/18/2006 09/23/2024 Overview (01/18/2006): No, Advance Directive brochure given to patient. Dyslipidemia, goal to be determined 01/14/2005 01/11/2012 documented as of this encounter (statuses as of 01/14/2025) Immunizations Name Administration Dates Next Due COVID-19 [...] encounter Miscellaneous Notes * Telephone Encounter - Kailey Mauro MD [...] filedocumented as of this encounter Care Teams Director Radio Relationship Specialty Start Date End Date Vandana Hurtado DO [address] [place] [address], [place] [address] PCP - General Family Medicine 07/24/13 documented as of this encounter
--- OUTSIDE RECORDS SUMMARY | 2025-02-08 15:21 | External Medical Summary | Summary of Care ---
Author Name Unknown Organization [facility] Address [address] [place] [address] Phone [phone] Care Team Providers Care Foot Orthopedist Name Role Phone BryantVandana Primary Care Provider Reason for Referral * Evaluate & Treat - Unlimited Visits (Within 30 days (routine)) - Authorized Specialty Diagnoses / Procedures Referred By Davonte tapia Referred To Contact Dermatology Diagnoses Squamous cell carcinoma in situ (SCCIS) of scalp Harpreet Mauro MD [address] [place] [address] Phone: tel: fax: Referral ID Status Reason Start Date Expiration Date Visits Requested Visits Authorized [id number] Authorized Specialty Services Required 01/15/2025 999 999 [...] [place] [address] [place] [address] Harpreet Mauro MD [address] [place] [address] Advice Allergies Active Allergy Reactions Criticality Noted Date Comments Atorvastatin 01/30/2002 Lipitor-rash Diphenhydramine Other (Please comment) 10/22/20 19 Restless legs Latex 10/26/2020 Pollen Extract 10/26/2020 Simvastatin 04/23/2002 rash documented as of this encounter (statuses as of 01/16/2025) Medications CALCIUM CAPS 500 MG OR 2/day [...] as of this encounter (statuses as of 01/16/2025) Active Problems Problem Noted Date Diagnosed Date History of nonmelanoma skin cancer 08/14/2017 Dyslipidemia, goal LDL below 160 01/11/2012 M-NEOPLASM, FEMALE BREAST NOS- LEFT/ Bilateral m astectomy 05/16/2011 NONALLERGIC RHINITIS 08/27/2004 Tibial torsion 05/03/2004 Menopause 10/05/1998 Edema 02/23/1998 documented as of this encounter (statuses as of 01/16/2025) Resolved Problems Problem Noted Date Diagnosed Date Resolved Date ADVANCE DIRECTIVE INFORMATION 01/18/2006 09/23/2024 Overview (01/18/2006): No, Advance Directive brochure given to patient. Dyslipidemia, goal to be determined 01/14/2005 01/11/2012 documented as of this encounter (statuses as of 01/16/2025) Immunizations Name Administration Dates Next Due COVID-19 [...] schedule Mohs surgery 01/16 at 7:30 am. Patient has concerns about other lesions on her scalp. Can eval (and bx if indicated) other lesionsof concern on scalp at that time. Harpreet Mauro MD * Telephone Encounter - Lindsey Rivera OSA - 01/14/2025 3:45 PM EST Heather Pt wants to speak to Dr mauro before scheduling MOHS. P: [phone] * Telephone Encounter - Harpreet Mauro MD [...] documented in this encounter Plan of Treatment Upcoming Encounters Date Type Department Care Team (Late st Contact Info) Description 01/16/2025 7:30 AM EST Office Visit [facility] [address] [place] [address] Harpreet Mauro MD [address] [place] [address] Scheduled Referrals Name Type Priority Associated Diagnoses [...] Primary documented in this encounter Care Teams Foot Orthopedist Relationship Specialty Start Date End Date Vandana Hurtado DO [address] [place] [address] PCP - General Family Medicine 07/24/13 documented as of this encounter
--- OUTSIDE RECORDS SUMMARY | 2025-02-08 15:21 | External Medical Summary | Continuity of Care Document ---
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 Name Role Phone Vandana Hurtado Primary Care Physician [phone] [id number] Date(s): 12/26/24 - 12/26/[address] [place] [address], [address] [place] [address] [phone] Encounter Diagnosis Body mass index [BMI] 22.0-22.9, adult(Discharge Diagnosis) - 12/26/24 Breast carcinoma(Discharge Diagnosis) - 12/26/24 Osteoporosis(Discharge Diagnosis) - 12/26/24 Dyslipidemia(Discharge Diagnosis) - 12/26/24 Discharge Disposition: Home or Self Care Attending Physician: DO Hurtado Kristen M Referring Physician: DO Hurtado Kristen M Allergies, Adverse Reactions, Alerts Substance Criticality Severity Reaction Reaction Severity Status Lipitor 1 rash Active Benadryl restless legs Active Adhesive bandage skin sensitivity Active Grass watery eyes Active Pet dander watery eyes Active Pollen sneezing, itchy watery eyes Active Latex skin sensitivity Act cornelius 1pt states rash from knees to ankles Assessment and Plan Extracted from: Title:Office Visit Note Author:DO Hurtado Kriste n M Date:12/26/24 1.Breast carcinoma Chronic condition, stable Goal:Resolution Data:unique tests ordered: _ Plan: _survivorship with Ajala 2.Osteoporosis Chronic condition, stable Goal:Resolution Data:unique tests ordered: _ Plan: _pt would like to continue lifestyle modification 3.Dyslipidemia Chronic condition, stable Goal:Resolution Data:unique tests ordered: _ Plan: _labs--deferred for now --wants to try lifestyle modification Immunizations Given and Recorded Vaccine Date Status Refusal Reason SARS-CoV-2 (COVID-19) mRNA BNT-162b2 vax 02/15/21 Recorded SARS-CoV-2 (COVID-19) mRNA BNT-162b2 vax 01/19/21 Recorded pneumococcal 13-valent vaccine 05/24/16 Given influenza virus vaccine, inactivated 1 07/28/14 Gi ja influenza virus vaccine, inactivated 09/02/13 Give n influenza virus vaccine, inactivated 07/31/12 Give n tetanus/diphtheria/pertuss, acel (Tdap) 2 01/11/12 Recorded pneumococcal 23-valent vaccine 09/21/10 Recorded tetanus toxoids-diphtheria, Td (Adult) 3 03/19/01 Recorded 1Early/Late Reason: Other : got busy with other patients. 2Result Comment: 2022-10-07: Historical information-source unspecified 3Result Comment: 2022-10-07: Historical information-source unspecified Medications Crestor 10 mg oral tablet Start: 12/19/23 2:37:00 PM EST, 1 tab, PO, Daily, Disp# 30 tab, Refills: 3, Pharmacy: [id number] Start Date: 12/19/23 Stop Date: 04/17/24 Status: Ordered hydroCHLOROthiazide 12.5 mg oral capsule Start: 11/29/24 12:05:00 PM EST, 1 cap, PO, Daily, Disp# 90 cap, Refills: 3, Pharmacy: [facility] Start Date: 11/29/24 Status: Ordered Unknown Medication See Instructions, 01/01/13 2:50:36 PM EST, Maintenance, Vitamin C with Mamta Hips 1,000mg Daily Start Date: 01/01/13 Status: Ordered Vitamin D3 Start: 12/23/15 10:48:00 AM EST, 1,000 Int_Unit =, PO, Daily Start Date: 12/23/15 Status: Ordered Xyzal Start: 12/12/23 11:17:00 AM EST Start Date: 12/12/23 Status: Ordered Mental Status 12/26/24 Barriers to Learning one year None evide nt Mandatory Health Literacy Documentation Yes Health Literacy Communication Barriers N ever Primary Language Slovenian Problem List Condition Confirmation Course Effective Dates Status H ealth Status Informant Breast carcinoma Confirmed 06/20/12 Active Estrogen deficiency Confirmed Active Dyslipidemia Confirmed Active Environmental allergies Confirmed Active HBP (high blood pressure) Confirmed Active Headache Confirmed Active Leukopenia Confirmed Active Diagnosis Diagnosis Type Effective Dates Health Status Clinical Service Informant Body mass index [BMI] 22.0-22.9, adult Discharge Diagnosis 12/26/24 Non-Specified Breast carcinoma Discharge Diagnosis 12/26/24 Non-Specified Osteoporosis Discharge Diagnosis 12/26/24 Non-Specified Dyslipidemia Discharge Diagnosis 12/26/24 Non-Specified Procedures Procedure Date Related Diagnosis Body Site Status X-ray of right ankle 1 10/02/20 Co mpleted Colonoscopy 2 10/09/19 Completed DEXA (dual energy X-ray phot on absorptiometry) scan of lateral spine 3 07/02/19 Completed Excision of mass left chest wall 4 07/14/17 Completed DEXA - Dual energy X-ray evon ton absorptiometry 5 06/14/16 Completed Imaging 6 12/24/15 Completed Colonoscopy 7 01/24/12 Completed b/l mastectomy Completed 1impression: mild soft tissue swelling without acute fracture or dislocation 2COLO to cecum, cecal polyp cold snared, redundant colon 3F/U jun 2021 4soft tissue, left side of chest: Lipoma 5repeat in 2 years 6chest 2 vieww 7Internal hemorrids Otherwise normal exam. Repeat in 10 years. Vital Signs Most recent to oldest [Reference Range]: 1 Height 155.6 cm (12/26/24 1:50 PM) Patient Weight 54.8 kg (12/26/24 1:50 PM) Body Mass Index 22.63 kg/m2 (12/26/24 1:50 PM) Temperature [36.5-37.9 DegC] 36.7 DegC (12/26/24 1:50 PM) Blood Pressure 116/76mmHg (12/26/24 1:50 PM) Cuff Pulse Pressure 40 mmHg (12/26/24 1:50 PM) Social History Social History Type Response Smoking Status Never smoked cigaret dawit Sex Female Sex Representation Female (finding) [facility] Outpt Note * DO Hurtado Kristen M: PERFORM Event Display: [facility] Outpt Note Authored Date: [id number] Chief Complaint Pt here for med check. colon scheduled 01/2025. Pt had Dexa. History of Present Illness Pt presents for med check. She has her screening colonoscopy scheduled. Her dexa is up to date. Review of Systems ROS: Denies NYE, visual changes, SOB, CP, N/V, no edema, fever, chills, dysuria, bowel changes Physical Exam Vitals & Measurements T:36.7C BP:116/76 SpO2:97% HT:155.6cm WT:54.800kg(Dosing) WT:54.8kg BMI:22.63 PHQ2 Data(Data Documented on:12/26/2024 13:50) Emotional health assessment NEGATIVE G: AAAOx3, NAD H: RR normal S1/S2 no M/R/G L: CTA b/l no r/r/w A: soft +bs nt nd E: no c/C/E b/l, pos distal pulses P: normal affect and insight, no homicidal/suicidal ideation Assessment/Plan 1.Breast carcinoma Chronic condition, stable Goal:Resolution Data:unique tests ordered: _ Plan: _survivorship with Ajala 2.Osteoporosis Chronic condition, stable Goal:Resolution Data:unique tests ordered: _ Plan: _pt would like to continue lifestyle modification 3.Dyslipidemia Chronic condition, stable Goal:Resolution Data:unique tests ordered: _ Plan: _labs--deferred for now --wants to try lifestyle modification Attestation I spent4 mintime in previsit planning including prepping note and chart review . I spent32 time in face to face interaction with patient concerning the issues that brought them in today. I spent4 min time in post visit planning including finishing note and depart process Total time spent today on patient visit40 min Problem List/Past Medical History Ongoing Acute allergic rhinitis Acute recurrent maxillary sinusitis Breast carcinoma Chest pain Dyslipidemia Environmental allergies Estrogen deficiency HBP (high blood pressure) Headache Hearing disorder Hematuria Hemorrhoid Herpes zoster Initial Medicare annual wellness visit Leukopenia Medicare annual wellness visit, subsequent Nasal injury PAIN Polyuria Rash Right shoulder injury Screening for poisoning from contaminated water Situational stress Syncope Tendonitis, calcific Urinary disorder Urinary urgency Weight disorder Well adult exam Resolved Acute sinusitis Procedure/Surgical History X-ray of right ankle| Service Date: 10/02/2020Colonoscopy| Service Date: 10/09/2019DEXA (dual energy X-ray photon absorptiometry) scan of lateral spine| Service Date: 07/02/2019Excision of mass left chest wall| Service Date: 07/14/2017DEXA - Dual energy X-ray photon absorptiometry| Service Date: 06/14/2016Imaging| Service Date: 12/24/2015Colonoscopy| Service Date: 2012b/l mastectomy Medications cholecalciferol(Vitamin D3), 1000 Int_Unit, PO, Daily ezetimibe(ezetimibe 10 mg oral tablet), See Instructions, 3 refills hydroCHLOROthiazide(hydroCHLOROthiazide 12.5 mg oral capsule), 1 cap, PO, Daily levocetirizine(Xyzal) magnesium sulfate/potassium sulfate/sodium sulfate(Suprep Bowel Prep Kit 1.6 g- 3.13 g-17.5 g/177 mLoral liquid), See Instructions rosuvastatin(Crestor 10 mg oral tablet), 10 mg= 1 tab, PO, Daily, 3 refills Unknown Medication, See Instructions Allergies Adhesive bandageskin sensitivity Benadrylrestless legs Grasswatery eyes Latexskin sensitivity Lipitorrash Pet danderwatery eyes Pollensneezing, itchy watery eyes Social History Smoking Status Never smoked cigarettes Alcohol - Low Risk Exercise - Regular exercise Other - No Risk Tobacco - No Risk Intake (IView) Smoking History Cigarette smoker: Never smoked cigarettes Tobacco Product Use: Never used other tobacco products Family History Arthritis: Mother. Diabetes: Mother. Heart attack: Father. High Blood Pressure: Mother and Father. Stroke: Mother. Thyroid disease: Mother. Health Status Family Member(s) Immunizations Vaccine Date Status SARS-CoV-2 (COVID-19) mRNA BNT-162b2 vax 02/15/2021 Recorded SARS-CoV-2 (COVID-19) mRNA BNT-162b2 vax 01/19/2021 Recorded pneumococcal 13-valent vaccine 05/24/2016 Given influenza virus vaccine, inactivated 07/28/2014 Given Comments : Other : got busy with other patients. influenza virus vaccine, inactivated 09/02/2013 Given influenza virus vaccine, inactivated 07/31/2012 Given tetanus/diphtheria/pertuss, acel (Tdap) 01/11/2012 Recorded Comments : 2022-10-07: Historical information-source unspecified pneumococcal 23-valent vaccine 09/21/2010 Recorded tetanus toxoids-diphtheria, Td (Adult) 03/19/2001 Recorded Comments : 2022-10-07: Historical information-source unspecified Recommendations Health Maintenance Pending(in the next year) OverDue Medicare Annual Wellness Visit due10/04/23and every 1year Adult Influenza Vaccine due05/20/24and every 1year Due Adult COVID-19 Vaccination due12/26/24Unknown Frequency Adult Social Determinants of Health Screening due12/26/24Unknown Frequency Adult Tdap/Td Vaccine due12/26/24Unknown Frequency Falls Plan of Care due12/26/24Unknown Frequency Hepatitis C Screening due12/26/24One-time only Pneumococcal Vaccine Older Adults due12/26/24One-time only Shingles Vaccine due12/26/24One-time only Due In Future Body Mass Index not due until02/28/25and every 366day Satisfied(in the past 1 year) Satisfied Body Mass Index on02/28/24.Satisfied by VIOLETA Garcia Angela Osteoporosis Screening on10/29/24.Satisfied by VIOLETA Garcia Angela Electronic Signature on File Electronically Reviewed/Signed by: Vandana Hurtado DO Author Signature Dt/Tm:12/26/2024 02:32 PM Department of [facility] Patient Care team information Care Team Personnel Name: RENATA Miller Tara Position: Nurse Pract - Family Med Member Role: Lifetime Relationship Address: [address] [place] [address] Name: DO Hurtado Kristen M Position: Physician - Family Med Member Role: Primary Care Provider Address: [address] [place] [address] [place] Care Team Related Persons Name: ELIO ORDOÑEZ Name: PABLO ADAMS"
[2025-02-08 15:42] LABS: iSTAT Creatinine 0.6 mg/dl (0.6-1.3); iSTAT Hemoglobin 13.6 g/dl (12.0-16.0); iSTAT Ionized Calcium 1.09 mmol/l (1.12-1.32); iSTAT Potassium 3.2 mmol/L (3.3-5.0)
[2025-02-08] MEDS: HEPARIN SOD (PORCINE) 1000 UNIT/ML IV ONE (15:45)
[2025-02-08 16:07] LABS: Basophils # (auto) 0.04 K/uL (0.00-0.20); Basophils % (auto) 0.7 %; Eosinophils # (auto) 0.14 K/uL (0.00-0.50); Eosinophils % (auto) 2.5 %; Hemoglobin 13.1 g/dl (12.0-16.0); Immature Granulocytes # (auto) 0.02 K/uL (0.01-0.20); Immature Granulocytes % (auto) 0.4 %; Lymphocytes # (auto) 2.46 K/uL (1.20-3.40); Lymphocytes % (auto) 43.3 %; Mean Corpuscular Hemoglobin 29.8 pg (25.0-34.0); Mean Corpuscular Hgb Conc 32.8 g/dL (32.0-36.0); Mean Corpuscular Volume 91.1 fL (80.0-100.0); Mean Platelet Volume 9.8 fL (9.4-12.4); Monocytes # (auto) 0.46 K/uL (0.11-0.59); Monocytes % (auto) 8.1 %; Neutrophils # (auto) 2.56 K/uL (1.40-6.50); Platelet Count 323 K/uL (130-400); RDW Coefficient of Variation 13.8 % (11.5-14.5); RDW Standard Deviation 46.8 fL (36.4-46.3); Red Blood Count 4.39 M/uL (4.20-5.40); White Blood Count 5.68 K/ul (4.8-10.8)
--- NOTE | 2025-02-08 16:07 | Pre Anesthesia Assessment ---
Date of Service February 08, 2025 Pre Sedation Assessment Vital Signs Temp Pulse Pulse Resp BP BP Pulse Ox 02/08/25 15:48 81 20 168/89 H 99 02/08/25 15:45 85 24 168/89 H 97 02/08/25 15:31 77 24 169/101 H 96 02/08/25 15:29 83 02/08/25 15:20 97 02/08/25 15:20 97 02/08/25 15:20 97.9 F 80 18 169/101 H 97 O2 Del Method 02/08/25 15:48 Room Air 02/08/25 15:45 Room Air 02/08/25 15:31 Room Air 02/08/25 15:29 02/08/25 15:20 Room Air 02/08/25 15:20 Room Air 02/08/25 15:20 Room Air Cardiovascular + regular rate Respiratory + respiratory effort normal Pre-Sedation Airway Assessment Smoking Status: Never smoker Hx Sleep Apnea: No Hx Difficult Intubation: No Short, Thick Neck: No Thyromental Distance: > or= 3.5 Finger Breadths Oral Cavity: + Dental Abnormalities Mallampati Class: III ASA: ASA4 Procedure Planning Contraindications for Sedation: none Current Medications Reviewed: Yes Notes The planned sedation has been discussed with the patient. Informed Consent was obtained. I have identified the patient, determined the appropriateness of sedation and have assessed the patient immediately prior to the procedure. All medicine(s) and interventions are by my order.
--- NOTE | 2025-02-08 16:08 | History & Physical Report ---
Date of Service February 08, 2025 Assessment & Plan (1) ACS (acute coronary syndrome): Plan: Brought to the hospital following chest pain, which started 2 hours prior to presentation. Central chest pain radiating to the shoulders. Stat EKG in the emergency department showed some T wave changes. Troponin pending 2D echo pending. Cardiology has been consulted, awaiting evaluation Had received heparin and the ticagrelor Possibly she will be taken to the [facility] Continue pain management (2) Basal cell carcinoma (BCC) in situ of skin: Plan: Recently had mohs procedure on the scalp Basal cell ca excision (3) HTN (hypertension): Plan: Blood pressure elevated on admission At home on hydrochlorothiazide 12.5 mg, will continue History of Present Illness Chief Complaint: chest pain Primary Care Provider: Vandana Hurtado DO Is a 74-year-old female with a history of hypertension, recent Mohrs procedure for Basal cell ca, who was brought to the hospital by ambulance on account of c hest pain. According to the patient she was at home for a couple of hours prior to presentation when she started experiencing central chest pain, 8 out of 10 in intensity then radiating to her shoulders. However patient then called 911 and the ambulance came and brought her to the hospital. Here in the emergency department stat EKG was done which showed some ST changes. On-call interventional cardiology has been consulted and patient is awaiting evaluation. However it is likely she will be taken to the cardiac [facility], and from day to ICU post cath. Currently vital signs are stable blood pressure 168/89 pulse 81 respiratory rate 20 saturating 95% on room air. Allergies Allergy/AdvReac Type Severity Reaction Status Date / Time cat dander Allergy Severe SNEEZING, Verified 11/27/24 13:45 TAKES BREATH AWAY adhesive Allergy Intermediate RASH Verified 11/27/24 13:45 atorvastatin Allergy Intermediate generalized Verified 11/27/24 13:45 rash latex Allergy Intermediate RASH Verified 11/27/24 13:45 diphenhydramine AdvReac Intermediate RESTLESS Verified 11/27/24 13:45 LEGS ENVIRONMENTAL Allergy Severe SNEEZING, Uncoded 11/27/24 13:45 SOB Home Medications Medication Instructions Recorded Confirmed Type ascorbic acid (vitamin C) 1,000 mg 1,000 mg PO QAM 12/14/20 11/27/24 History tablet hydrochlorothiazide 12.5 mg tablet 12.5 mg PO QAM 12/14/20 11/27/24 History levocetirizine 5 mg tablet 5 mg PO QAM 12/14/20 11/27/24 History cholecalciferol (vitamin D3) 25 25 mcg PO QAM 07/20/24 11/27/24 History mcg (1,000 unit) capsule (Vitamin D3) mupirocin 2 % topical ointment 1 applic topical BID #15 grams 09/18/24 11/27/24 Rx Beets Gummy PO 11/27/24 11/27/24 History Past Med/Surg History Problem List (Updated 02/08/25 @ 16:05 by Juanita Pineda MD) HTN (hypertension) ACS (acute coronary syndrome) Hyperlipidemia Basal cell carcinoma (BCC) in situ of skin Allergic rhinitis due to allergen Nasal septal perforation Nasal fracture Encounter for annual routine gynecological examination Surgical History (Updated 11/27/24 @ 14:15 by Viviana Rae MD, FACOG) S/P Mohs surgery for basal cell carcinoma History of tonsillectomy H/O dilation and curettage History of mastectomy bil2009 H/O local excision of skin lesion Family History Father Heart disease Hypertension Cerebral artery occlusion with cerebral infarction Aunt Uterine cancer Brother Cancer Colorectal cancer Mother Diabetes Hypertension Cerebral artery occlusion with cerebral infarction Denies family history of Ovarian cancer Prostate cancer Breast cancer Social History (Updated 11/27/24 @ 13:52 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 Physical Exam Physical Exam: The patient is awake, alert and oriented 3, well developed and well nourished, normocephalic and atraumatic, lying in bed and in no acute distress. HEENT--PERRL, EOMI, mucous membranes and oropharynx mildly dry Neck--supple. No JVD. No bruits. Thyroid normal, trachea midline, no adenopathy. Heart--normal S1 and S2. No murmurs, rubs or gallops. Lungs--clear bilaterally, no respiratory distress, no accessory muscle use. Abdomen--normal bowel sounds and soft. Extremities--no cyanosis or clubbing. No edema. Dermatologic--normal skin turgor, normal color, no abnormal lymph nodes, no rash. Neurologic--cranial nerves II through XII grossly intact. Rheumatologic--normal range of motion. Psychiatric--normal affect. Results & Data Results & Data Vital Signs (Past 12 Hours) Vital Signs Temp Pulse Pulse Resp BP BP Pulse Ox 02/08/25 15:48 81 20 168/89 H 99 02/08/25 15:29 83 02/08/25 15:20 97 02/08/25 15:20 97 02/08/25 15:20 97.9 F 80 18 169/101 H 97 O2 Del Method 02/08/25 15:48 Room Air 02/08/25 15:29 02/08/25 15:20 Room Air 02/08/25 15:20 Room Air 02/08/25 15:20 Room Air Code Status & VTE Plan VTE Prophylaxis Plan VTE Prophylaxis will be ordered: Yes PG Care Time/CCT Total # of Minutes Spent Total Time Spent with Patient: Total time spent is greater than 50% in coordination of care (as documented) at patient's floor/unit and/or counseling patient: Coding Level of Care Code 34880 INT INP/OBS CARE 3/75MIN Diagnoses ACS (acute coronary syndrome) I24.9 Basal cell carcinoma (BCC) in situ of skin D04.9 HTN (hypertension) I10 Time Spent (min) 75
--- NOTE | 2025-02-08 16:11 | Cardiology Consultation ---
Date of Consultation February 08, 2025 Assessment & Plan (1) Acute [place]: Presentation consistent with inferior STEMI and recommend proceeding with emergent cardiac catheterization and likely primary PCI. No apparent contraindications to procedure. Discussed risks, benefits, alternatives of procedure with patient and they are willing to proceed. Given IV heparin and ticagrelor 180 mg in the ED. Further recommendations pending findings of coronary angiography. History of Present Illness History of Present Illness 74-year-old woman here with acute chest pain and ECG concerning for acute [place]. Patient seen emergently in the ED after heart alert activated en route. No prior cardiac history. Cardiac risk factors include dyslipidemia, hypertension. Has a history of breast cancer in 2009 treated with chemo/XRT/bilateral mastectomy. Also has a history of skin cancer post multiple Mohs procedures most recently earlier this week. Reports first episode of chest pain occurring 2 days ago after walking. Attributed to heavy outdoor work earlier in the week. Had recurrence of chest pain approximately 10 AM today about 4 hours prior to arrival. Pain gradually progressed and radiated down her arms with associated nausea. Pain at its worst 10 out of 10, down to 7 out of 10 after aspirin with EMS. <5 out of 10 on arrival here. In ED hemodynamically and electrically stable. ECG showed sinus rhythm with inferior ST elevations. 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 Allergies Allergy/AdvReac Type Severity Reaction Status Date / Time cat dander Allergy Severe SNEEZING, Verified 11/27/24 13:45 TAKES BREATH AWAY adhesive Allergy Intermediate RASH Verified 11/27/24 13:45 atorvastatin Allergy Intermediate generalized Verified 11/27/24 13:45 rash latex Allergy Intermediate RASH Verified 11/27/24 13:45 diphenhydramine AdvReac Intermediate RESTLESS Verified 11/27/24 13:45 LEGS ENVIRONMENTAL Allergy Severe SNEEZING, Uncoded 11/27/24 13:45 SOB Home Medications Medication Instructions Recorded Confirmed Type ascorbic acid (vitamin C) 1,000 mg 1,000 mg PO QAM 12/14/20 11/27/24 History tablet hydrochlorothiazide 12.5 mg tablet 12.5 mg PO QAM 12/14/20 11/27/24 History levocetirizine 5 mg tablet 5 mg PO QAM 12/14/20 11/27/24 History cholecalciferol (vitamin D3) 25 25 mcg PO QAM 07/20/24 11/27/24 History mcg (1,000 unit) capsule (Vitamin D3) mupirocin 2 % topical ointment 1 applic topical BID #15 grams 09/18/24 11/27/24 Rx Beets Gummy PO 11/27/24 11/27/24 History Patient History Surgical History S/P Mohs surgery for basal cell carcinoma History of tonsillectomy H/O dilation and curettage History of mastectomy bilat 2009 H/O local excision of skin lesion Family History Father Heart disease Hypertension Cerebral artery occlusion with cerebral infarction Aunt Uterine cancer paternal Brother Cancer Colorectal cancer Mother Diabetes Hypertension Cerebral artery occlusion with cerebral infarction Denies family history of Ovarian cancer Prostate cancer Breast cancer Social History Smoking Status: Never smoker Second Hand Exposure: No; Do You Dip or Chew Tobacco: No; Tobacco Cessation Education Requested by Patient: No Hx Alcohol Use: Yes Alcohol type: wine Alcohol Intake Frequency Comment: occasionally Hx Substance Use: No Preferred Language: Uzbek Mechanical Oxidizer Required: No Beliefs That Will Affect Care: None marital status: Current Living Situation: Spouse Other Information That Helps Us Care for You: No Feels Safe at Home: Yes Safety Concerns: Feels Safe At This Time Dental Care, Regularly: Yes Physical Activity Frequency: Daily Seatbelt Use: always Sunscreen Use: Yes Assistive Devices: Glasses Review of Systems Review of Systems: Not completed in the setting of emergent situation Physical Exam Physical Exam: General: Uncomfortable HEENT: Sclerae anicteric Lungs: Clear anteriorly Cardiac: Regular rate and rhythm, no murmurs. Vascular: 2+ radial, 2+ DP pulses bilaterally Abdomen: Soft, nontender Extremities: Well perfused, no peripheral edema Neuro: Nonfocal Psych: Alert orient x3, normal affect and mood Results & Data Vital Signs (Past 12 Hours) Vital Signs Temp Pulse Pulse Resp BP BP Pulse Ox 02/08/25 15:48 81 20 168/89 H 99 02/08/25 15:45 85 24 168/89 H 97 02/08/25 15:31 77 24 169/101 H 96 02/08/25 15:29 83 02/08/25 15:20 97 02/08/25 15:20 97 02/08/25 15:20 97.9 F 80 18 169/101 H 97 O2 Del Method 02/08/25 15:48 Room Air 02/08/25 15:45 Room Air 02/08/25 15:31 Room Air 02/08/25 15:29 02/08/25 15:20 Room Air 02/08/25 15:20 Room Air 02/08/25 15:20 Room Air PG Care Time/CCT Total # of Minutes Spent Total Time Spent with Patient: Total time spent is greater than 50% in coordination of care (as documented) at patient's floor/unit and/or counseling patient: Coding Level of Care Code 33042 ER DEPT VISIT MOD LVL 4 Diagnoses Acute [place] I21.9
[2025-02-08 16:24] LABS: Albumin Globulin Ratio 1.4 (0.9-2); Albumin Level 4.3 gm/dl (3.4-5.0); BUN Creatinine Ratio 20.3 (10-20); Bilirubin,Total 0.3 mg/dl (0.2-1.0); Calcium 9.8 mg/dl (8.6-10.3); Creatinine Clr Calc Pharmacy 52.3 ml/min; Magnesium 1.9 mg/dl (1.7-2.4); Potassium 3.3 mmol/L (3.5-5.1); Total Protein 7.3 gm/dl (6.0-8.3)
--- NOTE | 2025-02-08 16:25 | XRay Report ---
Chest radiograph, one view History: Chest pain Comparison: 07/20/2024 Findings: Single AP view of the chest performed. No focal consolidation or pleural effusion. No pneumothorax. The cardiomediastinal silhouette is within normal limits. Normal pulmonary vascularity. No evidence for lymphadenopathy. No visualized bony or soft tissue abnormality. Impression: Normal chest radiograph Electronically signed by Elia Browning 02-08-2025 4:24 PM
[2025-02-08 16:30] LABS: Troponin I High Sensitivity 47.9 pg/ml (0-14)
[2025-02-08 16:36] LABS: INR 0.9 (0.9-1.1); Partial Thromboplastin Ratio 1.1; Partial Thromboplastin Time 30 Seconds (21-31); Prothrombin Time 10.2 Seconds (9.0-12.0)
[2025-02-08 16:39] LABS: Thyroid Stimulating Hormone 1.18 uIu/ml (0.300-4.500)
[2025-02-08] MEDS: HEPARIN (PORCINE) 1000 UNIT/ML 10 ML (CATH LAB USE ONLY) ONE (17:00)
[2025-02-08] MEDS: fentaNYL citrate PF 100 MCG/2 ML VIAL ONE (17:00)
[2025-02-08] MEDS: NITROGLYCERIN/D5W 100MCG/ML 20ML SYR ONE (17:01)
[2025-02-08] MEDS: MIDAZOLAM HCL 1 MG/ML 2ML VIAL ONE (17:01)
[2025-02-08] MEDS: ONDANSETRON INJ 2 MG/ML 2 ML VIAL ONE (17:02)
[2025-02-08] MEDS: ATROPINE SULFATE 0.1 MG/ML 10ML SYR IV ONE (17:02)
[2025-02-08] MEDS: MAG SULFATE 50% 1GM/2ML VIAL IV ONE (17:02)
[2025-02-08] MEDS: TICAGRELOR 90 MG TAB PO ONE (17:02)
[2025-02-08] MEDS: OPTIRAY 350 ONE (17:02)
--- NOTE | 2025-02-08 17:13 | Post Anesthesia Assessment ---
Date of Service February 08, 2025 Post Sedation Assessment Vital Signs Temp Pulse Pulse Resp BP BP Pulse Ox 02/08/25 15:48 81 20 168/89 H 99 02/08/25 15:45 85 24 168/89 H 97 02/08/25 15:31 77 24 169/101 H 96 02/08/25 15:29 83 02/08/25 15:20 97 02/08/25 15:20 97 02/08/25 15:20 97.9 F 80 18 169/101 H 97 O2 Del Method 02/08/25 15:48 Room Air 02/08/25 15:45 Room Air 02/08/25 15:31 Room Air 02/08/25 15:29 02/08/25 15:20 Room Air 02/08/25 15:20 Room Air 02/08/25 15:20 Room Air Recovery Score Activity: Moves 4 extremities Respiration: Deep Breath/Cough Circulation: +/-20% PreAnes Value Consciousness: Fully Awake Oxygen Saturation: O2 needed for >90% Discharge Sedation Level of Care: Fast Track Phase II Post Sedation Plan On clinical assessment, the patient appears to have tolerated the sedation without complications. Patient is recovering as anticipated. Patient will continue to be monitored by nursing and may be discharged when sedation discharge criteria are met per below protocol. Upon Completions of procedure up to 15 minutes continue every 5 minute vital signs and the P.A.R. score; then discharge to a Phase I or Fast Track to Phase II per the following guidelines: * Discharge Patient to appropriate Phase II area if PAR is 8 or greater or return to pre- procedure baseline. The post - procedure orders will be as directed. * If PAR score is less than 8 or not return to pre-procedure baseline then patient will follow Phase I monitoring till PAR is reached for Phase II. The Phase I may be done in procedure room or may call to secure a Phase I area. * If naloxone or flumazenil are used for reversal, hold in Phase I for continued monitoring from when last reversal dose was given for a minimum of 60 minutes or longer pending the nurse and/or physician discretion of patient condition before discharge to Phase II. Please call the Sedation Physician to re-evaluate and complete post-note for discharge to Phase II area. Do NOT discharge from procedure sedation or Phase 1 until post- sedation evaluation note is complete by procedure /sedation MD Sedation Discharge Instructions to be given to the patient at discharge to home.
--- NOTE | 2025-02-08 17:21 | Post Operative Brief Note ---
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
--- NOTE | 2025-02-08 19:27 | Critical Care Consultation ---
Date of Consultation February 08, 2025 Assessment & Plan (1) HTN (hypertension): (2) Acute MT: (3) ACS (acute coronary syndrome): (4) Hyperlipidemia: (5) Basal cell carcinoma (BCC) in situ of skin: Plan Reason Critically Ill: 74 YOF presents with acute cornary syndrome and found to have 100% occlusion of circumflex. She underwent emergent/urgent cath with PCI and JERMAINE x1 to circ. Neuro - No acute needs CAM ICU: Negative Cardiac - ACS, JERMAINE to Circ, Hx: HTN, HLD - patient status post JERMAINE to circ- ICU for symptomatology monitoring and hemodynamic monitoring. - She is currently chest pain free and without symptoms - DAPT therapy per cardiology- ASA and Brilinta at this time - BB per cardiology and as hemodynamics permit- currently with Metoprolol tartrate 12.5mg BID - Lipid panel in am - Currently Rosuvastatin 20mg daily - HGB A1c in am - ECHO in am - GDMT pending the above - Right wrist arterial access with TR band in place- deflate per protocol- currently without concern or hematoma Respiratory - No acute needs - wean oxygen GI - No acute needs RENAL/LYTES - No acute needs - ICU electrolyte protocol - NO acute needs ENDO - No acute needs - As above for HGBA1c HEME - No acute needs ID - No concern for infective etiology at this time LINES/IV ACCESS - PIVx2 Continue use of these lines DVT PROPHYLAXIS - SCDS DISPO: ICU 24 hours post intervention ensure that symptomatology remains asymptomatic and follow hemodyanmics and telemetry. I have personally spent 55 minutes of care time in the direct management of this patient. This is a life/limb threatening event. This includes time spent evaluating patient, direct bedside care, chart review, placing orders, interpretation of diagnostic studies, discussion with consultants, patient, and family members, as well as other required patient management activities. This time is exclusive of all separately billable procedures, and separate from and in addition to any other critical care service time. Thank you for allowing us to participate in the care of this patient. Please refer to my attending physician's documentation for any further recommendations. History of Present Illness Reason for Consultation: STEMI s/p PCI with JERMAINE Requesting Physician: Dr. Pineda Attending Physician: Juanita Pineda MD History of Present Illness 74 YOF presents to the hospital for 2 days of chest pain. Patient reports that she initially had this pain 2 days ago, when she was doing yard, however that pain eventually went away but came back this morning following breakfast and was more intense and not relenting. The pain was located in the center of her chest and was like a sharp squeezing pain. The pain did radiate to her neck and down her left arm. It was associated with nausea without vomiting. She had dyspnea while lying flat this morning. Following eating breakfast she went home, was able to walk up 13 steps without worsening pain or dysnpnea, but when she laid flat in bed she felt like she was having a hard time getting her breath. Following this 911 was called and patient was brought to the ER and STEMI alert from the field. From there she was heart alerted and taken to the interventional suite, where she underwent angiography with PCI and JERMAINE to circ. SHe is noted with minimal residual CAD. She is seen in the ICU post procedure at evening rounds. She is pain free, on room air. No hemodynamic medications noted. Family is at bedside. TR band in place with no hematoma and adequate CV/NV status of right hand. CODE: FULL Allergies Allergy/AdvReac Type Severity Reaction Status Date / Time cat dander Allergy Severe SNEEZING, Verified 11/27/24 13:45 TAKES BREATH AWAY adhesive Allergy Intermediate RASH Verified 11/27/24 13:45 atorvastatin Allergy Intermediate generalized Verified 11/27/24 13:45 rash latex Allergy Intermediate RASH Verified 11/27/24 13:45 diphenhydramine AdvReac Intermediate RESTLESS Verified 11/27/24 13:45 LEGS ENVIRONMENTAL Allergy Severe SNEEZING, Uncoded 11/27/24 13:45 SOB Home Medications Medication Instructions Recorded Confirmed Type ascorbic acid (vitamin C) 1,000 mg 1,000 mg PO QAM 12/14/20 11/27/24 History tablet hydrochlorothiazide 12.5 mg tablet 12.5 mg PO QAM 12/14/20 11/27/24 History levocetirizine 5 mg tablet 5 mg PO QAM 12/14/20 11/27/24 History cholecalciferol (vitamin D3) 25 25 mcg PO QAM 07/20/24 11/27/24 History mcg (1,000 unit) capsule (Vitamin D3) mupirocin 2 % topical ointment 1 applic topical BID #15 grams 09/18/24 11/27/24 Rx Beets Gummy PO 11/27/24 11/27/24 History Patient History Surgical History (Updated 11/27/24 @ 14:15 by Viviana Rae MD, FACOG) S/P Mohs surgery for basal cell carcinoma History of tonsillectomy H/O dilation and curettage History of mastectomy bilat 2009 H/O local excision of skin lesion Family History Father Heart disease Hypertension Cerebral artery occlusion with cerebral infarction Aunt Uterine cancer Brother Cancer Colorectal cancer Mother Diabetes Hypertension Cerebral artery occlusion with cerebral infarction Denies family history of Ovarian cancer Prostate cancer Breast cancer Social History (Updated 11/27/24 @ 13:52 by 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) Smoking Status: Never smoker Second Hand Exposure: No; Do You Dip or Chew Tobacco: No; Tobacco Cessation Education Requested by Patient: No Hx Alcohol Use: Yes Alcohol type: wine Alcohol Intake Frequency Comment: occasionally Hx Substance Use: No Preferred Language: Tajik C 13 Catapult Operator Required: No Beliefs That Will Affect Care: None marital status: Current Living Situation: Spouse Other Information That Helps Us Care for You: No Feels Safe at Home: Yes Safety Concerns: Feels Safe At This Time Dental Care, Regularly: Yes Physical Activity Frequency: Daily Seatbelt Use: always Sunscreen Use: Yes Assistive Devices: Glasses Review of Systems Review of Systems: REVIEW OF SYSTEMS: Constitutional: No fever, sweats or chills Eyes: No diplopia, no worsening or blurred vision ENT: normal hearing, no trouble swallowing Respiratory: (+) orthopnea, No cough, sputum, Cardiovascular: (+) chest pain (resolved), no tightness or palpitations Abdomen: No pain, nausea, vomiting, diarrhea or constipation Musculoskeletal: No joint pain, calf pain, swelling Neurologic: No weakness, numbness/tingling, or balance problems Psychiatric: No anxiety or depression Skin: (+) scar to forehead following Moh's procedure, No rash or itch Physical Exam Physical Exam: PHYSICAL EXAM: General: awake, alert, no apparent distress Head: Normocephalic, scar to right forehead at hairline intact with godfrey- post MOHS procedure ENT: PERRL, EOMI, no pharyngeal exudate, mucous membranes moist Neuro: AAO x 3, speech clear and appropriate, strength intact bilaterally 5/5, sensation intact and equal all extremities and dermatomes, no pronator drift Chest: equal rise and fall of the chest, no accessory muscle use, no heaves or thrills, Clear to auscultation, on room air, Cardiac: Regular rate and rhythm, telemetry reviewed- NSR, skin warm dry, cap refill <3 seconds, peripheral pulses +2 no JVD, no murmur, no edema GI: NABS x 4 quadrants, soft, nontender to palpation, no rebound, guarding or tenderness : Spontaneously voiding, no pain, no CVA tenderness, Results & Data Results & Data Vital Signs (Past 12 Hours) Vital Signs Temp Pulse Pulse Resp BP BP Pulse Ox 02/08/25 17:30 36.9 C 83 16 109/52 L 94 02/08/25 16:06 02/08/25 15:48 81 20 168/89 H 99 02/08/25 15:45 85 24 168/89 H 97 02/08/25 15:31 77 24 169/101 H 96 02/08/25 15:29 83 02/08/25 15:20 97 02/08/25 15:20 97 02/08/25 15:20 36.6 C 80 18 169/101 H 97 O2 Del Method 02/08/25 17:30 Room Air 02/08/25 16:06 Room Air 02/08/25 15:48 Room Air 02/08/25 15:45 Room Air 02/08/25 15:31 Room Air 02/08/25 15:29 02/08/25 15:20 Room Air 02/08/25 15:20 Room Air 02/08/25 15:20 Room Air Laboratory Results Abnormal lab results 02/08/25 02/08/25 02/08/25 Range/Units 15:21 15:27 16:31 RDW Std Deviation 46.8 H (36.4-46.3) fL Activ Coag Time Kaolin 314 H (94-140) SECONDS POC Potassium 3.2 L (3.3-5.0) mmol/L Potassium 3.3 L (3.5-5.1) mmol/L POC Anion Gap 14.0 L (16-25) mmol/L BUN/Creatinine Ratio 20.3 H (10-20) Glucose 135 H (70-99(Fasting)) mg/dl POC Glucose (other) 134 H (70-99) mg/dl POC Ioniz Calcium Marci 1.09 L (1.12-1.32) mmol/l Troponin I High Sens 47.9 H (0-14) pg/ml B-Natriuretic Peptide 101 H (0-100) pg/ml 02/08/25 Range/Units 18:06 RDW Std Deviation (36.4-46.3) fL Activ Coag Time Kaolin (94-140) SECONDS POC Potassium (3.3-5.0) mmol/L Potassium (3.5-5.1) mmol/L POC Anion Gap (16-25) mmol/L BUN/Creatinine Ratio (10-20) Glucose (70-99(Fasting)) mg/dl POC Glucose (other) (70-99) mg/dl POC Ioniz Calcium Marci (1.12-1.32) mmol/l Troponin I High Sens 40685.3 H* D (0-14) pg/ml B-Natriuretic Peptide (0-100) pg/ml Diagnostic Findings Chest X-Ray 02/08/25 15:17 Chest radiograph, one view History: Chest pain Comparison: 07/20/2024 Findings: Single AP view of the chest performed. No focal consolidation or pleural effusion. No pneumothorax. The cardiomediastinal silhouette is within normal limits. Normal pulmonary vascularity. No evidence for lymphadenopathy. No visualized bony or soft tissue abnormality. Impression: Normal chest radiograph Electronically signed by Elia Browning 02-08-2025 4:24 PM Medications Administered Home Medications ascorbic acid (vitamin C) 1,000 mg tablet 1,000 mg PO QAM 12/14/20 [History Confirmed 11/27/24] hydrochlorothiazide 12.5 mg tablet 12.5 mg PO QAM 12/14/20 [History Confirmed 11/27/24] levocetirizine 5 mg tablet 5 mg PO QAM 12/14/20 [History Confirmed 11/27/24] cholecalciferol (vitamin D3) 25 mcg (1,000 unit) capsule (Vitamin D3) 25 mcg PO QAM 07/20/24 [History Confirmed 11/27/24] mupirocin 2 % topical ointment 1 applic topical BID #15 grams 09/18/24 [Rx Confi rmed 11/27/24] Beets Gummy PO 11/27/24 [History Confirmed 11/27/24] Active Medications Acetaminophen (Acetaminophen 325 Mg Tab) 650 mg PO Q4H PRN PRN Reason: MILD Pain (Scale 1,2,3) Stop: 03/10/25 17:12 Aspirin (Aspirin 81 Mg Ectab) [facility] Stop: 03/11/25 08:59 Losartan Potassium (Losartan Potassium 25 Mg Tab) [facility] [place] Stop: 03/11/25 08:59 Metoprolol Tartrate (Metoprolol Tartrate 25 Mg Tab) 12.5 mg PO BID [facility] Stop: 03/10/25 20:59 Ondansetron HCl (Ondansetron Inj 2 Mg/Ml 2 Ml Vial) 4 mg IV Q6H PRN PRN Reason: Nausea And Vomiting Stop: 03/10/25 17:12 Pantoprazole Sodium (Pantoprazole 40 Mg Tab) [facility] [place] Stop: 03/11/25 08:59 Rosuvastatin Calcium (Rosuvastatin Calcium 20 Mg Tab) [facility] [place] Stop: 03/11/25 08:59 Ticagrelor (Ticagrelor 90 Mg Tab) 90 mg PO BID [facility] Stop: 03/11/25 08:59 ECG Additional Comments: Normal sinus rhythm Cannot rule outInferior infarct, age undetermined Prolonged QT Abnormal ECG When compared with ECG [id number] 16:36, Nonspecific T wave abnormality now evident inInferior leads Nonspecific T wave abnormality no longer evident inAnterior leads QT has lengthened Coding Level of Care Code 89937 INT INP/OBS CARE 2/55MIN Diagnoses HTN (hypertension) I10 Acute MT I21.9 ACS (acute coronary syndrome) I24.9 Hyperlipidemia E78.5 Basal cell carcinoma (BCC) in situ of skin D04.9
--- NOTE | 2025-02-08 19:27 | Emergency Department Note ---
Impression & Plan ST elevation (STEMI) myocardial infarction ED Provider Note CHIEF COMPLAINT: Chest pain HISTORY OF PRESENT ILLNESS: This 74-year-old female patient with past medical history of breast cancer, basal cell carcinoma status post recent Mohs procedure, hyperlipidemia, hypertension presents to the emergency department with complaints of chest pain. The patient while watching TV this evening. Patient received 4 baby aspirin and nitroglycerin by EMS. She states her pain has improved from a 10/10 to a 6/10. She denies any significant shortness of breath. REVIEW OF SYSTEMS: A review of systems was performed with positives and pertinent negatives listed in the history of present illness. 10 systems were reviewed and are otherwise negative. ALLERGIES: see below MEDICATIONS: see below PMH: see below SOCIAL HISTORY: see below DDx: Acute coronary syndrome, PE, aortic dissection, AAA, pneumonia, heart failure pneumothorax among others. PHYSICAL EXAM: Vital signs reviewed. General: Well-appearing 74-year-old female, Anxious but in no distress. HEENT: No scleral icterus, PERRLA, neck supple. moist mucous membranes. Cardiovascular: Regular rate and rhythm, no extra sounds. Pulmonary: Clear to auscultation bilaterally, normal work of breathing. Abdomen: Soft, nontender, nondistended, positive bowel sounds. Musculoskeletal: Atraumatic, no peripheral edema. Neurologic: Patient awake alert and oriented x 3, speech is clear Skin: Warm, dry, no rash EMERGENCY DEPARTMENT COURSE/MDM: This patient was evaluated and appeared to be in no significant distress. Patient was a bit anxious but otherwise stable. IV access had been obtained by EMS, patient did receive p.o. aspirin and nitroglycerin. Patient does have ST elevation on EKG, heart alert was called. Chest x-ray was performed and reveals no evidence of focal lung consolidation or failure. Laboratory work reveals an elevated high-sensitivity troponin. Patient was given 5000 unit bolus of heparin. There was a slight delay in taking the patient to the catheterization lab as they had another patient on the table. Patient was taken to the catheterization lab by Dr. Norton MONITORING: An order for cardiac monitoring was placed and the patient is noted to be in a normal sinus rhythm beats per minute. RADIOLOGY: Chest x-ray to my interpretation reveals no evidence of focal lung consolidation or failure. EKG: to my interpretation reveals ST elevations in the inferior leads with reciprocal changes. 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 This includes bedside care, interpretation of diagnostic studies, and testing, discussion with consultants, patient, and family members, and other required patient management activities. This 35 minutes is in excess of all separately billable procedures. Past Med/Surg History Problem List (Updated 02/14/25 @ 05:16 by Nat Lance MD) ST elevation (STEMI) myocardial infarction (Acute) Acute LA HTN (hypertension) ACS (acute coronary syndrome) Hyperlipidemia Basal cell carcinoma (BCC) in situ of skin Allergic rhinitis due to allergen Nasal septal perforation Nasal fracture Encounter for annual routine gynecological examination Surgical History S/P Mohs surgery for basal cell carcinoma History of tonsillectomy H/O dilation and curettage History of mastectomy bil2009 H/O local excision of skin lesion Family History Father Heart disease Hypertension Cerebral artery occlusion with cerebral infarction Aunt Uterine cancer paternal Brother Cancer Colorectal cancer Mother Diabetes Hypertension Cerebral artery occlusion with cerebral infarction Denies family history of Ovarian cancer Prostate cancer Breast cancer Social History Smoking Status: Never smoker Second Hand Exposure: No; Do You Dip or Chew Tobacco: No; Hx Alcohol Use: Yes Alcohol type: wine Alcohol Intake Frequency Comment: occasionally Hx Substance Use: No Preferred Language: Cambodian Communication Ability: Effective 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: No Beliefs That Will Affect Care: None marital status: Current Living Situation: Spouse Feels Safe at Home: Yes Dental Care, Regularly: Yes Physical Activity Frequency: Daily Seatbelt Use: always Sunscreen Use: Yes Assistive Devices: None Allergies Allergies Allergy/AdvReac Type Severity Reaction Status Date / Time cat dander Allergy Severe SNEEZING, Verified 11/27/24 13:45 TAKES BREATH AWAY adhesive Allergy Intermediate RASH Verified 11/27/24 13:45 atorvastatin Allergy Intermediate generalized Verified 11/27/24 13:45 rash latex Allergy Intermediate RASH Verified 11/27/24 13:45 diphenhydramine AdvReac Intermediate RESTLESS Verified 11/27/24 13:45 LEGS ENVIRONMENTAL Allergy Severe SNEEZING, Uncoded 11/27/24 13:45 SOB Home Meds Home Medications Medication Instructions Recorded Confirmed ascorbic acid (vitamin C) 1,000 mg 1,000 mg PO QAM 12/14/20 02/09/25 tablet levocetirizine 5 mg tablet 5 mg PO QAM 12/14/20 02/09/25 cholecalciferol (vitamin D3) 25 25 mcg PO QAM 07/20/24 02/09/25 mcg (1,000 unit) capsule (Vitamin D3) Kelsie Sarabia 1 tab PO DAILY 11/27/24 02/09/25 Previous Rx's Medication Instructions Recorded aspirin 81 mg tablet,delayed 81 mg PO QAM 30 days #30 tabs 02/11/25 release losartan 25 mg tablet 25 mg PO QAM 30 days #30 tabs 02/11/25 metoprolol succinate 25 mg 25 mg PO DAILY #30 tabs 02/11/25 tablet,extended release 24 hr (Toprol XL) pantoprazole 40 mg tablet,delayed 40 mg PO QAM 30 days #30 tabs 02/11/25 release rosuvastatin 20 mg tablet 20 mg PO QAM 30 days #30 tabs 02/11/25 ticagrelor 90 mg tablet (Brilinta) 90 mg PO BID 30 days #60 tabs 02/11/25 Results & Data (ED) Vital Signs Vital Signs - 24 hr 02/08/25 15:20 02/08/25 15:20 02/08/25 15:20 Temperature 36.6 C Temperature Source Temporal Artery Scan Pulse Rate 80 Pulse Rate [Apical] Respiratory Rate 18 Respiratory Effort / Characteristics Non-Labored Spontaneous Respiratory Depth Normal Blood Pressure 169/101 H Blood Pressure [Right Arm] Blood Pressure Mean 123 Blood Pressure Mean [Right Arm] Pulse Oximetry 97 97 97 Oxygen Delivery Method Room Air Room Air Room Air Sepsis Recent Fever Within 48 Hours No Sepsis New/Unexplained Change in Mental Status N/A Sepsis Action Taken by Nursing No Action Required 02/08/25 15:29 02/08/25 15:31 02/08/25 15:45 Temperature Temperature Source Pulse Rate 83 77 85 Pulse Rate [Apical] Respiratory Rate 24 24 Respiratory Effort / Characteristics Respiratory Depth Blood Pressure 169/101 H 168/89 H Blood Pressure [Right Arm] Blood Pressure Mean 126 127 Blood Pressure Mean [Right Arm] Pulse Oximetry 96 97 Oxygen Delivery Method Room Air Room Air Sepsis Recent Fever Within 48 Hours Sepsis New/Unexplained Change in Mental Status Sepsis Action Taken by Nursing 02/08/25 15:48 02/08/25 16:06 Temperature Temperature Source Pulse Rate Pulse Rate [Apical] 81 Respiratory Rate 20 Respiratory Effort / Characteristics Non-Labored Spontaneous Respiratory Depth Normal Blood Pressure Blood Pressure [Right Arm] 168/89 H Blood Pressure Mean Blood Pressure Mean [Right Arm] 115 Pulse Oximetry 99 Oxygen Delivery Method Room Air Room Air Sepsis Recent Fever Within 48 Hours Sepsis New/Unexplained Change in Mental Status Sepsis Action Taken by [facility] Medications Current Medication List: was personally reviewed by me Laboratory Data Attestation: I reviewed the patient's lab results. 02/10/25 03:51 02/11/25 04:25 Lab Results 02/08/25 02/08/25 Range/Units 15:21 15:27 WBC 5.68 (4.8-10.8) K/ul RBC 4.39 (4.20-5.40) M/uL Hgb 13.1 (12.0-16.0) g/dl POC Hgb 13.6 (12.0-16.0) g/dl Hct 40.0 (37.0-47.0) % POC Hct 40 (37-47) % MCV 91.1 (80.0-100.0) fL MCH 29.8 (25.0-34.0) pg MCHC 32.8 (32.0-36.0) g/dL RDW Std Deviation 46.8 H (36.4-46.3) fL RDW Coeff of Odell 13.8 (11.5-14.5) % Plt Count 323 (130-400) K/uL MPV 9.8 (9.4-12.4) fL Immature Gran % (Auto) 0.4 % Neut % (Auto) 45.0 % Lymph % (Auto) 43.3 % Guthrie % (Auto) 8.1 % Eos % (Auto) 2.5 % Baso % (Auto) 0.7 % Neut # (Auto) 2.56 (1.40-6.50) K/uL Lymph # (Auto) 2.46 (1.20-3.40) K/uL Guthrie # (Auto) 0.46 (0.11-0.59) K/uL Eos # (Auto) 0.14 (0.00-0.50) K/uL Baso # (Auto) 0.04 (0.00-0.20) K/uL Immature Gran # (Auto) 0.02 (0.01-0.20) K/uL PT 10.2 (9.0-12.0) Seconds INR 0.9 (0.9-1.1) APTT 30 (21-31) Seconds PTT Ratio 1.1 POC Sodium 139 (135-144) mmol/L Sodium 139 (136-145) mmol/L POC Potassium 3.2 L (3.3-5.0) mmol/L Potassium 3.3 L (3.5-5.1) mmol/L POC Chloride 101 (101-112) mmol/L Chloride 100 (98-107) mmol/L Carbon Dioxide 31 (21-32) mmol/L POC Total CO2 27 (24-31) mmol/L Anion Gap 8 (3-11) POC Anion Gap 14.0 L (16-25) mmol/L POC BUN 13 (7-18) mg/dl BUN 14 (6-23) mg/dl Creatinine 0.69 (0.6-1.2) mg/dl POC Creatinine 0.6 (0.6-1.3) mg/dl Est Cr Clr Drug Dosing 52.3 ml/min eGFR 89.89 BUN/Creatinine Ratio 20.3 H (10-20) Glucose 135 H (70-99(Fasting)) mg/dl POC Glucose (other) 134 H (70-99) mg/dl Calcium 9.8 (8.6-10.3) mg/dl POC Ioniz Calcium Marci 1.09 L (1.12-1.32) mmol/l Magnesium 1.9 (1.7-2.4) mg/dl Total Bilirubin 0.3 (0.2-1.0) mg/dl AST 18 (13-39) U/L ALT 8 (7-52) U/L Alkaline Phosphatase 57 (34-104) U/L Total Creatine Kinase 51 (26-192) U/L Troponin I High Sens 47.9 H (0-14) pg/ml B-Natriuretic Peptide 101 H (0-100) pg/ml Total Protein 7.3 (6.0-8.3) gm/dl Albumin 4.3 (3.4-5.0) gm/dl Globulin 3.0 (2.5-4.0) gm/dl Albumin/Globulin Ratio 1.4 (0.9-2) Lipase 29 (11-82) U/L TSH 1.180 (0.300-4.500) uIu/ml Administered Medications Discontinued Medications Acetaminophen (Acetaminophen 325 Mg Tab) 650 mg PO Q4H PRN PRN Reason: MILD Pain (Scale 1,2,3) Stop: 03/10/25 17:12 Last Admin: 02/08/25 23:23 Dose: 650 mg Documented By: MARLON Aspirin (Aspirin 81 Mg Ectab) [facility] Stop: 03/11/25 08:59 Last Admin: 02/11/25 08:51 Dose: 81 mg Documented By: Admin: 02/10/25 08:41 Dose: 81 mg Documented By: MARY ANN Admin: 02/09/25 09:06 Dose: 81 mg Documented By: MTP Atropine Sulfate (Atropine Sulfate 0.1 Mg/Ml 10ml Syr) Confirm Administered Dose 1 mg IV .STK-MED ONE Stop: 02/08/25 16:24 Last Admin: 02/08/25 17:02 Dose: Not Given Documented By: KARLA Fentanyl Citrate (Fentanyl Citrate Pf 100 Mcg/2 Ml Vial) Confirm Administered Dose 100 mcg .ROUTE .STK-MED ONE Stop: 02/08/25 15:30 Last Increment: 02/08/25 17:00 Dose: 75 mcg Documented By: KARLA Fentanyl Citrate (Fentanyl Citrate Pf 100 Mcg/2 Ml Vial) Confirm Administered Dose 100 mcg .ROUTE .STK-MED ONE Stop: 02/10/25 11:51 Last Increment: 02/10/25 13:23 Dose: 50 mcg Documented By: STEPHANIE Heparin Sodium (Porcine) (Heparin (Porcine) 1000 Unit/Ml 10 Ml (Casino Gaming Worker Use Only)) Confirm Administered Dose 10,000 units .ROUTE .STK-MED ONE Stop: 02/08/25 15:30 Last Admin: 02/08/25 17:00 Dose: 4,000 units Documented By: KARLA Heparin Sodium (Porcine) (Heparin Sod (Porcine) 1000 Unit/Ml) 5,000 units IV NOW ONE Stop: 02/08/25 15:30 Last Admin: 02/08/25 15:45 Dose: 5,000 units Documented By: ROD Co-signed By: SHO Heparin Sodium (Porcine) (Heparin (Porcine) 1000 Unit/Ml 10 Ml (Casino Gaming Worker Use Only)) Confirm Administered Dose 10,000 units .ROUTE .STK-MED ONE Stop: 02/10/25 11:51 Last Admin: 02/10/25 13:23 Dose: 7,000 units Documented By: STEPHANIE Heparin Sodium/Sodium Chloride (Heparin In Nss Infusion 1000 Unit/500 Ml (2 U/Ml) Bag) Confirm Administered Dose 3,000 units IV .STK-MED ONE Stop: 02/08/25 15:30 Last Admin: 02/08/25 17:01 Dose: 3,000 units Documented By: SIXTO Heparin Sodium/Sodium Chloride (Heparin In Nss Infusion 1000 Unit/500 Ml (2 U/Ml) Bag) Confirm Administered Dose 3,000 units IV .STK-MED ONE Stop: 02/10/25 11:51 Last Admin: 02/10/25 12:35 Dose: 3,000 units Documented By: SIXTO Magnesium Sulfate/Dextrose (Magnesium Sulfate / D5w) 1 gm in 100 mls @ 50 mls/hr IV ONE ONE Stop: 02/09/25 04:10 Last Infusion: 02/09/25 05:02 Dose: Infused Documented By: Admin: 02/09/25 02:28 Dose: 50 mls/hr Documented By: CLC Ioversol (Optiray 350) Confirm Administered Dose 1 ml .ROUTE .STK-MED ONE Stop: 02/08/25 15:31 Last Admin: 02/08/25 17:02 Dose: 100 ml Documented By: KARLA Ioversol (Optiray 350) Confirm Administered Dose 1 ml .ROUTE .STK-MED ONE Stop: 02/10/25 11:52 Last Admin: 02/10/25 13:23 Dose: 120 ml Documented By: SIXTO Losartan Potassium (Losartan Potassium 25 Mg Tab) 25 mg PO QAM [facility] Stop: 03/11/25 08:59 Last Admin: 02/11/25 08:51 Dose: 25 mg Documented By: Admin: 02/10/25 08:41 Dose: 25 mg Documented By: MARY ANN Admin: 02/09/25 09:06 Dose: 25 mg Documented By: ALEXANDER Magnesium Sulfate (Mag Sulfate 50% 1gm/2ml Vial) Confirm Administered Dose 1 gm IV .STK-MED ONE Stop: 02/08/25 16:25 Last Admin: 02/08/25 17:02 Dose: 1 gm Documented By: KARLA Metoprolol Tartrate (Metoprolol Tartrate 25 Mg Tab) 12.5 mg PO BID [place] Stop: 03/10/25 20:59 Last Admin: 02/11/25 08:51 Dose: 12.5 mg Documented By: Admin: 02/10/25 20:43 Dose: 12.5 mg Documented By: Admin: 02/10/25 08:41 Dose: 12.5 mg Documented By: MARY ANN Admin: 02/09/25 20:29 Dose: 12.5 mg Documented By: Admin: 02/09/25 09:05 Dose: 12.5 mg Documented By: Admin: 02/08/25 20:31 Dose: 12.5 mg Documented By: MARLON Midazolam HCl (Midazolam Hcl 1 Mg/Ml 2ml Vial) Confirm Administered Dose 2 mg .ROUTE .STK-MED ONE Stop: 02/08/25 15:30 Last Admin: 02/08/25 17:01 Dose: 2 mg Documented By: KARLA Midazolam HCl (Midazolam Hcl 1 Mg/Ml 2ml Vial) Confirm Administered Dose 2 mg .ROUTE .STK-MED ONE Stop: 02/10/25 11:51 Last Admin: 02/10/25 12:36 Dose: 2 mg Documented By: STEPHANIE Midazolam HCl (Midazolam Hcl 1 Mg/Ml 2ml Vial) Confirm Administered Dose 2 mg .ROUTE .STK-MED ONE Stop: 02/10/25 12:35 Last Admin: 02/10/25 14:22 Dose: Not Given Documented By: MARY ANN Nicardipine HCl (Nicardipine 2,000 Mcg/20 Ml Syr) Confirm Administered Dose 2,000 mcg .ROUTE .STK-MED ONE Stop: 02/10/25 11:51 Last Admin: 02/10/25 12:35 Dose: 2,000 mcg Documented By: SIXTO Nitroglycerin/Dextrose (Nitroglycerin/D5w 100mcg/Ml 20ml Syr) Confirm Administered Dose 2,000 mcg .ROUTE .STK-MED ONE Stop: 02/08/25 15:31 Last Admin: 02/08/25 17:01 Dose: 2,000 mcg Documented By: KARLA Nitroglycerin/Dextrose (Nitroglycerin/D5w 100mcg/Ml 20ml Syr) Confirm Administered Dose 2,000 mcg .ROUTE .STK-MED ONE Stop: 02/10/25 11:52 Last Admin: 02/10/25 12:36 Dose: 2,000 mcg Documented By: SIXTO Ondansetron HCl (Ondansetron Inj 2 Mg/Ml 2 Ml Vial) Confirm Administered Dose 4 mg .ROUTE .STK-MED ONE Stop: 02/08/25 16:25 Last Admin: 02/08/25 17:02 Dose: 4 mg Documented By: KARLA Ondansetron HCl (Ondansetron Inj 2 Mg/Ml 2 Ml Vial) 4 mg IV Q6H PRN PRN Reason: Nausea And Vomiting Stop: 03/10/25 17:12 Last Admin: 02/08/25 23:23 Dose: 4 mg Documented By: MARLON Pantoprazole Sodium (Pantoprazole 40 Mg Tab) [facility] [place] Stop: 03/11/25 08:59 Last Admin: 02/11/25 08:51 Dose: 40 mg Documented By: Admin: 02/10/25 08:41 Dose: 40 mg Documented By: MARY ANN Admin: 02/09/25 09:06 Dose: 40 mg Documented By: ALEXANDER Potassium Chloride (Potassium Chloride Crtab 20 Meq Tabcr) 40 meq PO NOW STA Stop: 02/09/25 02:12 Last Admin: 02/09/25 02:28 Dose: 40 meq Documented By: MARLON Rosuvastatin Calcium (Rosuvastatin Calcium 20 Mg Tab) 20 mg PO QAM [facility] Stop: 03/11/25 08:59 Last Admin: 02/11/25 08:52 Dose: 20 mg Documented By: Admin: 02/10/25 08:41 Dose: 20 mg Documented By: MARY ANN Admin: 02/09/25 09:06 Dose: 20 mg Documented By: ALEXANDER Ticagrelor (Ticagrelor 90 Mg Tab) 180 mg PO ONE ONE Stop: 02/08/25 15:59 Last Admin: 02/08/25 17:02 Dose: 180 mg Documented By: KARLA Ticagrelor (Ticagrelor 90 Mg Tab) 90 mg PO BID [facility] Stop: 03/11/25 08:59 Last Admin: 02/11/25 08:52 Dose: 90 mg Documented By: Admin: 02/10/25 20:43 Dose: 90 mg Documented By: Admin: 02/10/25 09:06 Dose: 90 mg Documented By: Admin: 02/09/25 20:29 Dose: 90 mg Documented By: Admin: 02/09/25 09:12 Dose: 90 mg Documented By: MTP Imaging Data Radiologist's Impression: Chest X-Ray 02/08/25 15:17 Chest radiograph, one view History: Chest pain Comparison: 07/20/2024 Findings: Single AP view of the chest performed. No focal consolidation or pleural effusion. No pneumothorax. The cardiomediastinal silhouette is within normal limits. Normal pulmonary vascularity. No evidence for lymphadenopathy. No visualized bony or soft tissue abnormality. Impression: Normal chest radiograph Electronically signed by Elia Browning 02-08-2025 4:24 PM Discharge Plan Visit Data Chief Complaint: Heart Alert ED Provider: Nat Lance Discharge Problem: ST elevation (STEMI) myocardial infarction Patient Disposition: Admitted As Inpatient Discharge Instructions Interventions: ED Discharge Assessment Last Done: 02/08/25 16:06 Discharge Problem: ST elevation (STEMI) myocardial infarction Qualifiers: Involved coronary artery: unspecified coronary artery Qualified Code(s): I21.3 - ST elevation (STEMI) myocardial infarction of unspecified site
[2025-02-08] MEDS: METOPROLOL TARTRATE 25 MG TAB PO SCH (20:31)
[2025-02-08] MEDS: ONDANSETRON INJ 2 MG/ML 2 ML VIAL IV PRN (23:23)
[2025-02-08] MEDS: ACETAMINOPHEN 325 MG TAB PO PRN (23:23)
--- NOTE | 2025-02-09 00:04 | Cardiac Catheterization ---
[facility] Data: Hotel [employer] Cardiac Status Clinical evaluation leading to the procedure CAD Presenation: STEMI Anginal Classification: CCS IV Diagnostic Physicians Name: Elia Norton MD Closure Device Recommendations: PCI without planned CABG Cardiac Cath Procedure Full Procedure Date February 08, 2025 Pre-Procedure Diagnosis Pre-Procedure Diagnosis: STEMI AUC Score AUC Score: 9 Post-Procedure Diagnosis Post-Procedure Diagnosis: Severe CAD, Successful PCI and Elevated Intracardiac Pressures Procedure(s) Performed Procedure(s) Performed: Coronary Angiography, Left Heart Cath, PTCA and Drug Eluting Stent Blood Bank Assistant Elia Norton MD Instructional Design Consultant(s) Francheska Estimated Blood Loss Estimated Blood Loss: 25 Medication(s) Medication(s): Fentanyl, Heparin, Lidocaine 1%, Nicardipine, Nitroglycerin and Versed Medication(s): Ticagrelor Summary of Findings Indication: STEMI/Heart Alert Access: 6 Fr slender right radial artery Catheters: [place], EBU 3.5 guide, pigtail Findings: LM -Short, normal caliber, no significant disease LAD -medium caliber, 80-90% ostial stenosis, diffuse proximal to mid disease up to 70% in the midsegment extending to D2. 40 to 50% distal stenosis and 70% stenosis in small apical LAD. Circumflex -large caliber, 20 to 30% proximal, 40-50% earlymid prior to OM1. 100% acute mid occlusion. Small to medium OM1 70% ostial RCA -medium caliber, dominant, 50% mid segment stenosis, distal vessel/RPDA without significant disease LVEDP -25 -- PCI -- Antithrombotic therapy: Heparin, ticagrelor Procedure: Left main cannulated with EBU 3.5 guide Greens Laborer 50 wire passed across lesion into distal vessel Mid circumflex lesion predilated with 2.0 compliant balloon Whisper wire placed into OM1 Dilated lesion stented with 3.0 x 38 mm Nelson JERMAINE Stent post-dilated with 3.5 noncompliant balloon IC vasodilators administered for spasm Noted to have compromised flow and OM1 with recurrent chest pain OM1 eventually rewired with new whisper wire Jailed ostial OM1 dilated with 2.0 balloon with reestablished flow and resolution of chest pain Post procedure YOVANNY 3 flow, stent well expanded with minimal residual stenosis, YOVANNY-3 flow in OM1 and no other apparent cardiac complications. Arterial Closure: TR band Summary: 1. Inferior STEMI/100% acute mid circumflex occlusion 2. Multivessel non-culprit coronary artery disease -90% ostial, 70% diffuse proximal to mid LAD, 70% small apical LAD 50% mid RCA 3. Elevated intracardiac filling pressure 4. Successful PCI of proximal to distal circumflex with single drug-eluting stent (3.0 x 38 mm Nelson; postdilated with 3.5 NC) -PTCA of jailed ostial OM1 with 2.0 balloon with minimal residual ostial stenosis and YOVANNY-3 flow Recommendations: Admit to ICU for continued monitoring Loaded with ticagrelor 180 mg in Hotel House[employer] Continue dual-antiplatelet therapy for at least 1 year. Trend troponins until peak, Check Echo Uptitrate beta-amalia/ARB as BP allows High-dose statin Consult cardiac Rehab Plan on staged PCI of ostial/proximal to mid LAD later this hospitalization. Hemodynamics Rest Ao:: 160/88/120 Final Ao: 111/52/77 LV: 114/25 Recommendations Recommendations: PCI without planned CABG Radiation Exposure (mGy) 1530 Contrast (mls) 100 Anesthesia Moderate 1329-3037 Procedural Complication(s) None Disposition ICU I attest to the content of the Intraoperative Record and any orders documented therein. Any exceptions are noted below. [facility] Card Cath Procedure Codes Cardiac Catheterization Procedure 1: Cardiovascular Cath Procedures: 12456 Coronaries and LHC (+/-LV) Moderate Sedation Procedure 1: Sedation/Anesthesia: 55136 Mod Sedation by the same physician;Init15 Min Child Age 5 & Up Procedure 2: Sedation/Anesthesia: 54834 Mod Sedation by the same physician; Ea [id number] Minutes Stenting Procedure 1: Cardiovascular Stent Procedures: 36162 Perc transluminal revascularization of acute sub/total occl, aMI PG Care Time/CCT Total # of Minutes Spent Total Time Spent with Patient: Total time spent is greater than 50% in coordination of care (as documented) at patient's floor/unit and/or counseling patient:
[2025-02-09] MEDS: MAGNESIUM SULFATE / D5W 1 GM/100 ML BAG IV ONE (02:28)
[2025-02-09] MEDS: POTASSIUM CHLORIDE CRTAB 20 MEQ TABCR PO STA (02:28)
[2025-02-09 05:20] LABS: Basophils # (auto) 0.02 K/uL (0.00-0.20); Basophils % (auto) 0.3 %; Hematocrit (blood only) 37.6 % (37.0-47.0); Hemoglobin 12.3 g/dl (12.0-16.0); Immature Granulocytes # (auto) 0.02 K/uL (0.01-0.20); Immature Granulocytes % (auto) 0.3 %; Lymphocytes # (auto) 0.95 K/uL (1.20-3.40); Lymphocytes % (auto) 14.2 %; Mean Corpuscular Hemoglobin 29.6 pg (25.0-34.0); Mean Corpuscular Hgb Conc 32.7 g/dL (32.0-36.0); Mean Corpuscular Volume 90.6 fL (80.0-100.0); Mean Platelet Volume 9.6 fL (9.4-12.4); Monocytes # (auto) 0.39 K/uL (0.11-0.59); Monocytes % (auto) 5.8 %; Neutrophils # (auto) 5.31 K/uL (1.40-6.50); Neutrophils % (auto) 79.4 %; Platelet Count 317 K/uL (130-400); RDW Coefficient of Variation 14.2 % (11.5-14.5); RDW Standard Deviation 46.6 fL (36.4-46.3); Red Blood Count 4.15 M/uL (4.20-5.40); White Blood Count 6.69 K/ul (4.8-10.8)
[2025-02-09 05:43] LABS: BUN Creatinine Ratio 18.2 (10-20); Calcium 9.1 mg/dl (8.6-10.3); Chol HDL Ratio 5.2 (0-5); Creatinine Clr Calc Pharmacy 54.7 ml/min; Magnesium 2.5 mg/dl (1.7-2.4); Potassium 4.2 mmol/L (3.5-5.1)
[2025-02-09 07:38] LABS: Estimated Average Glucose 114 mg/dl; Hemoglobin A1C 5.6 % (4.5-5.6)
--- NOTE | 2025-02-09 08:42 | Electrocardiogram Report ---
Test Reason : Blood Pressure : */* mmHG Vent. Rate : 82 BPM Atrial Rate : 82 BPM P-R Int : 208 ms QRS Dur : 98 ms QT Int : 444 ms P-R-T Axes : 79 74 35 degrees QTcB Int : 518 ms Normal sinus rhythm with 1st degree A-V block Nondiagnostic inferior Q waves Nonspecific ST abnormality Lateral leads Prolonged QT Abnormal ECG When compared with ECG of 20-Jul-2024 16:36, QT has lengthened Confirmed by Sanket Alvarez ([id number]) on 02/09/2025 8:41:52 AM Referred By: REFERRED SELF Confirmed By: Sanket Alvarez
--- NOTE | 2025-02-09 09:01 | XCELERA ---
[id number] [id number]
[2025-02-09] MEDS: PANTOprazole 40 MG TAB PO SCH (09:06)
[2025-02-09] MEDS: ROSUVASTATIN CALCIUM 20 MG TAB PO SCH (09:06)
[2025-02-09] MEDS: LOSARTAN POTASSIUM 25 MG TAB PO SCH (09:06)
[2025-02-09] MEDS: ASPIRIN 81 MG ECTAB PO SCH (09:06)
[2025-02-09] MEDS: TICAGRELOR 90 MG TAB PO SCH (09:12)
--- NOTE | 2025-02-09 09:25 | Cardiology Progress Note ---
Date of Service February 09, 2025 Assessment & Plan (1) Acute NV: Plan: 02/08/2025 post JERMAINE to acute mid LCx occlusion 90% ostial, 70% proximal to mid LAD. 50% RCA 2. Ischemic cardiomyopathyEF 45%, inferolateral akinesis 3. Post NV nonsustained VT 4. DyslipidemiaLDL >200 5. Mild mitral regurgitationecho 01/2025 6. Borderline pulm hypertensionestimated PASP 38, RA 8 Chest pain-free today. Troponin has peaked. Hemodynamically stable. NSVT overnight, decreased ventricular ectopy this morning No congestion on exam. IVC borderline dilated on echo No access site complications Continue DAPT with aspirin, ticagrelor Continue metoprolol, increase as heart rate allows Start losartan 25 mg this morning Start rosuvastatin 20 mg daily. Long-term likely will need additional agent to get to goal Plan on staged PCI of LAD tomorrow morning, n.p.o. past midnight. Appreciate ICU and hospital medicine care Admission and Anticipated Discharge Date Admission Date: February 08, 2025 Subjective Feeling well this morning. Had brief chest pain last night. Intermittent episodes of nonsustained VT. 1 episode around 30 beats. Less ventricular ectopy this morning Review of Systems Review of Systems: All systems reviewed & are unremarkable except as noted in HPI & below Physical Exam Physical Exam: General: Comfortable HEENT: Sclerae anicteric Lungs: Clear to auscultation bilaterally, no crackles or wheezes Cardiac: Regular rate and rhythm, no murmurs. Vascular: Right radial artery access site with no ecchymosis, hematoma. Distal pulse and sensation intact. Abdomen: Soft, nontender Extremities: Well perfused, no peripheral edema Neuro: Nonfocal Psych: Alert orient x3, normal affect and mood Results & Data Vital Signs (Past 12 Hours) Vital Signs Temp Pulse Resp BP Pulse Ox 02/09/25 05:33 59 L 18 94 02/09/25 05:31 107/58 L 02/09/25 05:27 60 12 94 02/09/25 05:06 65 18 95 02/09/25 05:01 117/53 L 02/09/25 04:54 60 12 94 02/09/25 04:36 61 16 93 02/09/25 04:31 106/42 L 02/09/25 04:24 61 15 93 02/09/25 04:03 65 13 94 02/09/25 04:01 94/67 L 02/09/25 03:57 64 14 93 02/09/25 03:36 65 13 95 02/09/25 03:30 115/64 02/09/25 01:57 64 16 95 02/09/25 01:30 106/62 02/09/25 01:27 68 3 L 93 02/09/25 01:18 68 18 93 02/09/25 01:00 105/52 L 02/09/25 00:30 74 16 93 02/09/25 00:00 115/68 02/09/25 00:00 115/68 02/09/25 00:00 66 16 94 02/09/25 00:00 98.2 F 02/09/25 00:00 64 02/08/25 23:30 113/64 02/08/25 23:27 71 13 95 02/08/25 23:01 106/51 L 02/08/25 22:33 60 6 L 96 02/08/25 22:31 119/50 L 02/08/25 22:30 66 15 96 02/08/25 22:03 68 12 94 02/08/25 22:00 128/94 PG Care Time/CCT Total # of Minutes Spent Total Time Spent with Patient: Total time spent is greater than 50% in coordination of care (as documented) at patient's floor/unit and/or counseling patient: Coding Level of Care Code 51855 SUB INP/OBS CARE 3/50MIN Diagnoses Acute NV I21.9
--- NOTE | 2025-02-09 11:46 | Hospitalist Progress Note ---
Date of Service February 09, 2025 Assessment & Plan (1) ACS (acute coronary syndrome): Plan: Brought to the hospital following chest pain, which started 2 hours prior to presentation. Central chest pain radiating to the shoulders. Stat EKG in the emergency department showed some T wave changes. She is now s/p JERMAINE of the circumflex, cath showed 100% occlusion Plan is JERMAINE to LAD on Monday, cath showed about 90% stenosis 2D echo EF 40-45%, wall hypokinesis. Continue Ticagrelor 90mg BIB, Rosuvastatin 20mg, Metoprolol 12.5mg BID Appreciate cardiology (2) Basal cell carcinoma (BCC) in situ of skin: Plan: Recently had mohs procedure on the scalp Basal cell ca excision (3) HTN (hypertension): Plan: Blood pressure elevated on admission At home on hydrochlorothiazide 12.5 mg, will continue Plan Continue Hospitalization Full code Admission and Anticipated Discharge Date Admission Date: February 08, 2025 Subjective patient seen and examined, much more comfortable, said her chest pain has resolved Review of Systems Review of Systems: All systems reviewed are negative, apart from the ones contained in the history. Physical Exam Physical Exam: The patient is awake, alert and oriented 3, well developed and well nourished, normocephalic and atraumatic, lying in bed and in no acute distress. HEENT--PERRL, EOMI, mucous membranes and oropharynx mildly dry Neck--supple. No JVD. No bruits. Thyroid normal, trachea midline, no adenopathy. Heart--normal S1 and S2. No murmurs, rubs or gallops. Lungs--clear bilaterally, no respiratory distress, no accessory muscle use. Abdomen--normal bowel sounds and soft. Extremities--no cyanosis or clubbing. No edema. Dermatologic--normal skin turgor, normal color, no abnormal lymph nodes, no rash. Neurologic--cranial nerves II through XII grossly intact. Rheumatologic--normal range of motion. Psychiatric--normal affect. Results & Data Results & Data Vital Signs (Past 12 Hours) Vital Signs Temp Pulse Resp BP Pulse Ox 02/09/25 05:33 59 L 18 94 02/09/25 05:31 107/58 L 02/09/25 05:27 60 12 94 02/09/25 05:06 65 18 95 02/09/25 05:01 117/53 L 02/09/25 04:54 60 12 94 02/09/25 04:36 61 16 93 02/09/25 04:31 106/42 L 02/09/25 04:24 61 15 93 02/09/25 04:03 65 13 94 02/09/25 04:01 94/67 L 02/09/25 03:57 64 14 93 02/09/25 03:36 65 13 95 02/09/25 03:30 115/64 02/09/25 01:57 64 16 95 02/09/25 01:30 106/62 02/09/25 01:27 68 3 L 93 02/09/25 01:18 68 18 93 02/09/25 01:00 105/52 L 02/09/25 00:30 74 16 93 02/09/25 00:00 115/68 02/09/25 00:00 115/68 02/09/25 00:00 66 16 94 02/09/25 00:00 98.2 F 02/09/25 00:00 64 PG Care Time/CCT Total # of Minutes Spent Total Time Spent with Patient: Total time spent is greater than 50% in coordination of care (as documented) at patient's floor/unit and/or counseling patient: Coding Level of Care Code 68054 SUB INP/OBS CARE 2/35MIN Diagnoses ACS (acute coronary syndrome) I24.9 Basal cell carcinoma (BCC) in situ of skin D04.9 HTN (hypertension) I10 Time Spent (min) 35
--- NOTE | 2025-02-09 12:26 | Critical Care Progress Note ---
Date of Service February 09, 2025 Assessment & Plan (1) HTN (hypertension): (2) Acute [place]: (3) ACS (acute coronary syndrome): (4) Hyperlipidemia: (5) Basal cell carcinoma (BCC) in situ of skin: Plan Reason Critically Ill: 74 YOF presents with acute cornary syndrome and found to have 100% occlusion of circumflex. She underwent emergent/urgent cath with PCI and JERMAINE x1 to circ. Neuro - No acute needs CAM ICU: Negative Cardiac - ACS, JERMAINE to Circ, Hx: HTN, HLD - patient status post JERMAINE to circ- - She is currently chest pain free and without symptoms - DAPT therapy per cardiology- ASA and Brilinta at this time - BB per cardiology Rosuvastatin 20mg daily Respiratory - No acute needs, tolerating room air GI - No acute needs RENAL/LYTES - No acute needs - ICU electrolyte protocol - NO acute needs ENDO - No acute needs HEME - No acute needs ID - No concern for infective etiology at this time LINES/IV ACCESS - PIVx2 Continue use of these lines DVT PROPHYLAXIS - SCDS DISPO: Anticipate second stage of multistage PCI tomorrow, no acute critical care needs critical care will sign off at this time Admission and Anticipated Discharge Date Admission Date: February 08, 2025 Subjective Patient without specific complaint. Feels much better than yesterday appreciative of care. Physical Exam Physical Exam: General: Alert. nontoxic. Skin: Warm, dry, Head: Atraumatic Ears, nose, mouth and throat: airway patent Cardiovascular: Normal peripheral perfusion Respiratory: no respiratory distress Gastrointestinal: Non distended Musculoskeletal: No deformity Results & Data Results & Data Vital Signs (Past 12 Hours) Vital Signs Pulse Resp BP Pulse Ox 02/09/25 05:33 59 L 18 94 02/09/25 05:31 107/58 L 02/09/25 05:27 60 12 94 02/09/25 05:06 65 18 95 02/09/25 05:01 117/53 L 02/09/25 04:54 60 12 94 02/09/25 04:36 61 16 93 02/09/25 04:31 106/42 L 02/09/25 04:24 61 15 93 02/09/25 04:03 65 13 94 02/09/25 04:01 94/67 L 02/09/25 03:57 64 14 93 02/09/25 03:36 65 13 95 02/09/25 03:30 115/64 02/09/25 01:57 64 16 95 02/09/25 01:30 106/62 02/09/25 01:27 68 3 L 93 02/09/25 01:18 68 18 93 02/09/25 01:00 105/52 L 02/09/25 00:30 74 16 93 Critical Care Results & Data Vital Signs (Past 12 Hours) Vital Signs Pulse Resp BP Pulse Ox 02/09/25 05:33 59 L 18 94 02/09/25 05:31 107/58 L 02/09/25 05:27 60 12 94 02/09/25 05:06 65 18 95 02/09/25 05:01 117/53 L 02/09/25 04:54 60 12 94 02/09/25 04:36 61 16 93 02/09/25 04:31 106/42 L 02/09/25 04:24 61 15 93 02/09/25 04:03 65 13 94 02/09/25 04:01 94/67 L 02/09/25 03:57 64 14 93 02/09/25 03:36 65 13 95 02/09/25 03:30 115/64 02/09/25 01:57 64 16 95 02/09/25 01:30 106/62 02/09/25 01:27 68 3 L 93 02/09/25 01:18 68 18 93 02/09/25 01:00 105/52 L 02/09/25 00:30 74 16 93 Lab & Micro Results (Past 24 Hours) RBC 4.15 M/uL (4.20-5.40) L 02/09/25 WBC 6.69 K/ul (4.8-10.8) 02/09/25 Hgb 12.3 g/dl (12.0-16.0) 02/09/25 Hct 37.6 % (37.0-47.0) 02/09/25 MCV 90.6 fL (80.0-100.0) 02/09/25 MCH 29.6 pg (25.0-34.0) 02/09/25 MCHC 32.7 g/dL (32.0-36.0) 02/09/25 RDW Standard Deviation 46.6 fL (36.4-46.3) H 02/09/25 RDW Coefficient of Variation 14.2 % (11.5-14.5) 02/09/25 Plt Count 317 K/uL (130-400) 02/09/25 MPV 9.6 fL (9.4-12.4) 02/09/25 Neutrophils (%) (Auto) 79.4 % 02/09/25 Lymphocytes (%) (Auto) 14.2 % 02/09/25 Monocytes # (Auto) 0.39 K/uL (0.11-0.59) 02/09/25 Eosinophils # (Auto) 0.00 K/uL (0.00-0.50) 02/09/25 Immature Granulocyte % (Auto) 0.3 % 02/09/25 Neutrophils # (Auto) 5.31 K/uL (1.40-6.50) 02/09/25 Lymphocytes # (Auto) 0.95 K/uL (1.20-3.40) L 02/09/25 Monocytes # (Auto) 0.39 K/uL (0.11-0.59) 02/09/25 Eosinophils # (Auto) 0.00 K/uL (0.00-0.50) 02/09/25 Basophils # (Auto) 0.02 K/uL (0.00-0.20) 02/09/25 Immature Granulocyte # (Auto) 0.02 K/uL (0.01-0.20) 5 Na 137 mmol/L (136-145) 02/09/25 K 4.2 mmol/L (3.5-5.1) 02/09/25 Cl 105 mmol/L (98-107) 02/09/25 CO2 29 mmol/L (21-32) 02/09/25 Anion Gap 3 (3-11) 02/09/25 BUN 12 mg/dl (6-23) 02/09/25 Creatinine 0.66 mg/dl (0.6-1.2) 02/09/25 BUN/Creatinine Ratio 18.2 (10-20) 02/09/25 Glu 131 mg/dl (70-99(Fasting)) H 02/09/25 Ca 9.1 mg/dl (8.6-10.3) 02/09/25 Total Bilirubin 0.3 mg/dl (0.2-1.0) 02/08/25 AST 18 U/L (13-39) 02/08/25 ALT 8 U/L (7-52) 02/08/25 Alkaline Phosphatase 57 U/L (34-104) 02/08/25 TP 7.3 gm/dl (6.0-8.3) 02/08/25 Albumin 4.3 gm/dl (3.4-5.0) 02/08/25 Globulin 3.0 gm/dl (2.5-4.0) 02/08/25 Albumin/Globulin Ratio 1.4 (0.9-2) 02/08/25 Mg 2.5 mg/dl (1.7-2.4) H 02/09/25 05:02 Calcium Level 9.1 mg/dl (8.6-10.3) 02/09/25 05:02 Prothromb Time International Ratio 0.9 (0.9-1.1) 02/08/25 15:2 1 Diagnostic Findings (Past 24 Hours) Chest X-Ray 02/08/25 15:17 Chest radiograph, one view History: Chest pain Comparison: 07/20/2024 Findings: Single AP view of the chest performed. No focal consolidation or pleural effusion. No pneumothorax. The cardiomediastinal silhouette is within normal limits. Normal pulmonary vascularity. No evidence for lymphadenopathy. No visualized bony or soft tissue abnormality. Impression: Normal chest radiograph Electronically signed by Elia Browning 02-08-2025 4:24 PM I & O Totals 24 Hours 02/08/25 02/09/25 02/10/25 06:59 06:59 06:59 Intake Total 625 / 625 Output Total 275 / 275 Balance 350 / 350 Cumulative 02/08/25 15:09 thru 02/09/25 06:00 Intake Total 625 Output Total 275 Balance 350 RT Ventilator Mngmt (Last Documented) Ventilator Ordered Settings Respiratory Rate 18 02/09/25 05:33 Ventilator - PT Measurements Respiratory Rate 18 Coding Level of Care Code 87599 SUB INP/OBS CARE 12/14MIN Diagnoses HTN (hypertension) I10 Acute TX I21.9 ACS (acute coronary syndrome) I24.9 Hyperlipidemia E78.5 Basal cell carcinoma (BCC) in situ of skin D04.9
[2025-02-10 04:29] LABS: Basophils # (auto) 0.02 K/uL (0.00-0.20); Basophils % (auto) 0.3 %; Eosinophils # (auto) 0.08 K/uL (0.00-0.50); Eosinophils % (auto) 1.3 %; Hematocrit (blood only) 34.7 % (37.0-47.0); Hemoglobin 11.6 g/dl (12.0-16.0); Immature Granulocytes # (auto) 0.02 K/uL (0.01-0.20); Immature Granulocytes % (auto) 0.3 %; Lymphocytes # (auto) 1.34 K/uL (1.20-3.40); Lymphocytes % (auto) 22.3 %; Mean Corpuscular Hemoglobin 30.4 pg (25.0-34.0); Mean Corpuscular Hgb Conc 33.4 g/dL (32.0-36.0); Mean Corpuscular Volume 90.8 fL (80.0-100.0); Monocytes # (auto) 0.46 K/uL (0.11-0.59); Monocytes % (auto) 7.6 %; Neutrophils % (auto) 68.2 %; Platelet Count 248 K/uL (130-400); RDW Coefficient of Variation 14.4 % (11.5-14.5); RDW Standard Deviation 48.3 fL (36.4-46.3); Red Blood Count 3.82 M/uL (4.20-5.40); White Blood Count 6.02 K/ul (4.8-10.8)
[2025-02-10 04:42] LABS: BUN Creatinine Ratio 27.8 (10-20); Calcium 9.2 mg/dl (8.6-10.3); Creatinine Clr Calc Pharmacy 50.2 ml/min; Potassium 4.2 mmol/L (3.5-5.1)
--- NOTE | 2025-02-10 09:18 | Critical Care Progress Note ---
Date of Service February 10, 2025 Assessment & Plan (1) Acute AR: (2) HTN (hypertension): (3) ACS (acute coronary syndrome): (4) Hyperlipidemia: (5) Breast cancer: Plan Reason Critically Ill: 74 YOF presents with acute cornary syndrome and found to have 100% occlusion of circumflex. She underwent emergent/urgent cath with PCI and JERMAINE x1 to circ. Neuro - No acute needs CAM ICU: Negative Cardiac - ACS, JERMAINE to Circ, Hx: HTN, HLD - Status post JERMAINE to circumflex 02/09/2025 - DAPT therapy per cardiology- ASA and Brilinta at this time Rosuvastatin 20mg daily Respiratory - No acute needs, tolerating room air GI - No acute needs RENAL/LYTES - Monitor BUNs/creatinine Avoid nephrotoxic medication - NO acute needs ENDO - No acute needs HEME - -- Normocytic anemia Monitor H&H -- History of left-sided breast cancer Diagnosed 2009 ID - No concern for infective etiology at this time --Prophylaxis VTE: None GI: Pantoprazole Lines: Peripheral Diet: Cardiac, currently n.p.o. Plan: In/out: +374, urine output 851 Continue with dual antiplatelet therapy, continue with statin Patient is for cardiac cath today Disposition as per cardiology Please note the above document was generated using voice recognition software. It may contain grammatical, syntax or spelling errors.Any formal questions or concerns about the content, text or information contained within the body of this dictation should be directly addressed to the provider for clarification. Admission and Anticipated Discharge Date Admission Date: February 08, 2025 Subjective Patient seen and examined at bedside. No acute distress, no adverse events overnight Patient's was also in the room Systolic blood pressure was in the 1 teens, MAP in the high 70s to low 80s, saturation 94% on room air Denied any chest pain. No shortness of breath No nausea or vomiting Fair appetite, currently n.p.o. Review of Systems 2 Review of Systems: All systems reviewed & are unremarkable except as noted in Subjective Physical Exam 2 Physical Exam: Constitutional: No acute distress HEENT: EOMI, PERRLA Respiratory system: Good air entry bilaterally, no wheeze, no rhonchi, mild crackles bilateral lower lobe CVS: S1-S2 positive, no murmurs or gallops Abdomen: Soft, nontender, nondistended, positive bowel sounds x4 Extremities: +2 pulses bilaterally radialis/ dorsalis pedis, no cyanosis, no edema Neuro: Awake alert oriented x3 Psych: Normal mood and affect G/U: No Thomson Skin: no rashes, warm and dry Lymphatic: no cervical or axillary lymphadenopathy Results & Data Results & Data Vital Signs (Past 12 Hours) Vital Signs Temp Pulse Pulse Resp BP BP BP 02/10/25 09:02 61 16 116/63 02/10/25 08:21 63 13 02/10/25 08:00 111/57 L 02/10/25 08:00 36.6 C 02/10/25 07:56 118/62 02/10/25 07:18 65 19 02/10/25 07:03 59 L 14 02/10/25 07:00 95/52 L 02/10/25 06:49 64 02/10/25 06:48 54 L 10 L 02/10/25 06:00 66 13 95/59 L 02/10/25 05:00 57 L 12 96/59 L 02/10/25 04:00 62 13 101/55 L 02/10/25 04:00 101/55 L 02/10/25 03:00 68 13 102/57 L 02/10/25 02:00 60 12 90/55 L 02/10/25 01:00 59 L 13 100/70 02/10/25 00:00 70 02/10/25 00:00 66 12 02/10/25 00:00 93/55 L 02/09/25 23:00 65 13 85/57 L 02/09/25 22:00 69 16 99/60 L Pulse Ox O2 Del Method 02/10/25 09:02 97 Room Air 02/10/25 08:21 96 Room Air 02/10/25 08:00 02/10/25 08:00 02/10/25 07:56 02/10/25 07:18 94 02/10/25 07:03 95 02/10/25 07:00 02/10/25 06:49 02/10/25 06:48 96 02/10/25 06:00 93 02/10/25 05:00 95 02/10/25 04:00 95 02/10/25 04:00 02/10/25 03:00 93 02/10/25 02:00 93 02/10/25 01:00 93 02/10/25 00:00 02/10/25 00:00 92 02/10/25 00:00 02/09/25 23:00 94 02/09/25 22:00 95 Room Air Laboratory Results 02/10/25 03:51 02/10/25 03:51 Coding Level of Care Code 73961 SUB INP/OBS CARE 2/35MIN Diagnoses Acute AR I21.9 HTN (hypertension) I10 ACS (acute coronary syndrome) I24.9 Hyperlipidemia E78.5 Breast cancer C50.919
--- NOTE | 2025-02-10 10:51 | Hospitalist Progress Note ---
Date of Service February 10, 2025 Assessment & Plan (1) Acute CO: Plan: Patient was Brought to the hospital following chest pain, which started 2 hours prior to presentation. Stat EKG in the emergency department showed some T wave changes. She is now s/p JERMAINE of the circumflex, cath showed 100% occlusion Plan is JERMAINE to LAD on today, cath showed about 90% stenosis 2D echo EF 40-45%, wall hypokinesis. Continue Ticagrelor 90mg BIB, Rosuvastatin 20mg, Metoprolol 12.5mg BID Appreciate cardiology (2) Basal cell carcinoma (BCC) in situ of skin: Plan: Recently had mohs procedure on the scalp Basal cell ca excision (3) HTN (hypertension): Plan: Blood pressure elevated on admission At home on hydrochlorothiazide 12.5 mg, will continue (4) ACS (acute coronary syndrome): Plan Continue Hospitalization, disposition per cardiology Full code Admission and Anticipated Discharge Date Admission Date: February 08, 2025 Subjective patient seen and examined, sitting up in the chair, no chest pains Review of Systems Review of Systems: All systems reviewed are negative, apart from the ones contained in the history. Physical Exam Physical Exam: The patient is awake, alert and oriented 3, well developed and well nourished, normocephalic and atraumatic, lying in bed and in no acute distress. HEENT--PERRL, EOMI, mucous membranes and oropharynx mildly dry Neck--supple. No JVD. No bruits. Thyroid normal, trachea midline, no adenopathy. Heart--normal S1 and S2. No murmurs, rubs or gallops. Lungs--clear bilaterally, no respiratory distress, no accessory muscle use. Abdomen--normal bowel sounds and soft. Extremities--no cyanosis or clubbing. No edema. Dermatologic--normal skin turgor, normal color, no abnormal lymph nodes, no rash. Neurologic--cranial nerves II through XII grossly intact. Rheumatologic--normal range of motion. Psychiatric--normal affect. Results & Data Results & Data Vital Signs (Past 12 Hours) Vital Signs Temp Pulse Pulse Resp BP BP Pulse Ox 02/10/25 09:02 61 16 116/63 97 02/10/25 08:21 63 13 96 02/10/25 08:00 111/57 L 02/10/25 08:00 97.9 F 02/10/25 07:56 118/62 02/10/25 07:18 65 19 94 02/10/25 07:03 59 L 14 95 02/10/25 07:00 95/52 L 02/10/25 06:49 64 02/10/25 06:48 54 L 10 L 96 02/10/25 06:00 66 13 95/59 L 93 02/10/25 05:00 57 L 12 96/59 L 95 02/10/25 04:00 62 13 101/55 L 95 02/10/25 04:00 101/55 L 02/10/25 03:00 68 13 102/57 L 93 02/10/25 02:00 60 12 90/55 L 93 02/10/25 01:00 59 L 13 100/70 93 02/10/25 00:00 70 02/10/25 00:00 66 12 92 02/10/25 00:00 93/55 L 02/09/25 23:00 65 13 85/57 L 94 O2 Del Method 02/10/25 09:02 Room Air 02/10/25 08:21 Room Air 02/10/25 08:00 02/10/25 08:00 02/10/25 07:56 02/10/25 07:18 02/10/25 07:03 02/10/25 07:00 02/10/25 06:49 02/10/25 06:48 02/10/25 06:00 02/10/25 05:00 02/10/25 04:00 02/10/25 04:00 02/10/25 03:00 02/10/25 02:00 02/10/25 01:00 02/10/25 00:00 02/10/25 00:00 02/10/25 00:00 02/09/25 23:00 PG Care Time/CCT Total # of Minutes Spent Total Time Spent with Patient: Total time spent is greater than 50% in coordination of care (as documented) at patient's floor/unit and/or counseling patient: Coding Level of Care Code 99060 SUB INP/OBS CARE 2/35MIN Diagnoses Acute CO I21.9 Basal cell carcinoma (BCC) in situ of skin D04.9 HTN (hypertension) I10 ACS (acute coronary syndrome) I24.9 Time Spent (min) 35
--- NOTE | 2025-02-10 11:51 | Pre Anesthesia Assessment ---
Date of Service February 10, 2025 Pre Sedation Assessment Vital Signs Temp Pulse Pulse Resp BP BP BP 02/10/25 09:02 61 16 116/63 02/10/25 08:21 63 13 02/10/25 08:00 111/57 L 02/10/25 08:00 97.9 F 02/10/25 07:56 118/62 02/10/25 07:18 65 19 02/10/25 07:03 59 L 14 02/10/25 07:00 95/52 L 02/10/25 06:49 64 02/10/25 06:48 54 L 10 L 02/10/25 06:00 66 13 95/59 L 02/10/25 05:00 57 L 12 96/59 L 02/10/25 04:00 62 13 101/55 L 02/10/25 04:00 101/55 L 02/10/25 03:00 68 13 102/57 L 02/10/25 02:00 60 12 90/55 L 02/10/25 01:00 59 L 13 100/70 02/10/25 00:00 70 02/10/25 00:00 66 12 02/10/25 00:00 93/55 L 02/09/25 23:00 65 13 85/57 L 02/09/25 22:00 69 16 99/60 L 02/09/25 21:00 98.1 F 67 12 102/51 L 02/09/25 20:14 103/55 L 02/09/25 20:00 98/55 L 02/09/25 20:00 60 14 02/09/25 19:06 61 16 02/09/25 19:00 90/46 L 02/09/25 18:52 89/53 L 02/09/25 18:45 61 16 02/09/25 18:09 60 17 02/09/25 17:00 63 20 02/09/25 17:00 99/58 L 02/09/25 16:27 62 15 02/09/25 16:00 60 02/09/25 15:00 89/57 L 02/09/25 13:10 91/44 L 02/09/25 13:08 86/42 L 02/09/25 13:03 60 16 02/09/25 13:00 57 L 19 02/09/25 12:03 65 19 02/09/25 12:00 88/45 L 02/09/25 12:00 88/45 L Pulse Ox O2 Del Method 02/10/25 09:02 97 Room Air 02/10/25 08:21 96 Room Air 02/10/25 08:00 02/10/25 08:00 02/10/25 07:56 02/10/25 07:18 94 02/10/25 07:03 95 02/10/25 07:00 02/10/25 06:49 02/10/25 06:48 96 02/10/25 06:00 93 02/10/25 05:00 95 02/10/25 04:00 95 02/10/25 04:00 02/10/25 03:00 93 02/10/25 02:00 93 02/10/25 01:00 93 02/10/25 00:00 02/10/25 00:00 92 02/10/25 00:00 02/09/25 23:00 94 02/09/25 22:00 95 Room Air 02/09/25 21:00 99 Room Air 02/09/25 20:14 02/09/25 20:00 02/09/25 20:00 96 02/09/25 19:06 96 02/09/25 19:00 02/09/25 18:52 02/09/25 18:45 96 02/09/25 18:09 97 02/09/25 17:00 02/09/25 17:00 02/09/25 16:27 02/09/25 16:00 02/09/25 15:00 02/09/25 13:10 02/09/25 13:08 02/09/25 13:03 95 02/09/25 13:00 96 02/09/25 12:03 95 02/09/25 12:00 02/09/25 12:00 Cardiovascular + regular rate Respiratory + respiratory effort normal Pre-Sedation Airway Assessment Smoking Status: Never smoker Hx Sleep Apnea: No Hx Difficult Intubation: No Short, Thick Neck: No Thyromental Distance: > or= 3.5 Finger Breadths Oral Cavity: + WNL Mallampati Class: III ASA: ASA3 NPO Status Date of Last Intake of Fluids: 02/09/25 Time of Last Intake of Fluids: 20:00 Date of Last Intake of Solid Food: 02/09/25 Time of Last Intake of Solid Foods: 20:00 Procedure Planning Contraindications for Sedation: none Current Medications Reviewed: Yes Notes The planned sedation has been discussed with the patient. Informed Consent was obtained. I have identified the patient, determined the appropriateness of sedation and have assessed the patient immediately prior to the procedure. All medicine(s) and interventions are by my order.
[2025-02-10] MEDS: niCARdipine 2,000 MCG/20 ML SYR ONE (12:35)
[2025-02-10] MEDS: NITROGLYCERIN/D5W 100MCG/ML 20ML SYR ONE (12:36)
[2025-02-10] MEDS: MIDAZOLAM HCL 1 MG/ML 2ML VIAL ONE ×2 (12:36→14:22)
[2025-02-10] MEDS: OPTIRAY 350 ONE (13:23)
[2025-02-10] MEDS: HEPARIN (PORCINE) 1000 UNIT/ML 10 ML (CATH LAB USE ONLY) ONE (13:23)
[2025-02-10] MEDS: fentaNYL citrate PF 100 MCG/2 ML VIAL ONE (13:23)
--- NOTE | 2025-02-10 14:00 | Post Anesthesia Assessment ---
Date of Service February 10, 2025 Post Sedation Assessment Vital Signs Temp Pulse Pulse Resp BP BP BP 02/10/25 13:45 59 L 16 93/60 L 02/10/25 13:30 66 16 115/66 02/10/25 09:02 61 16 116/63 02/10/25 08:21 63 13 02/10/25 08:00 111/57 L 02/10/25 08:00 97.9 F 02/10/25 07:56 118/62 02/10/25 07:18 65 19 02/10/25 07:03 59 L 14 02/10/25 07:00 95/52 L 02/10/25 06:49 64 02/10/25 06:48 54 L 10 L 02/10/25 06:00 66 13 95/59 L 02/10/25 05:00 57 L 12 96/59 L 02/10/25 04:00 62 13 101/55 L 02/10/25 04:00 101/55 L 02/10/25 03:00 68 13 102/57 L 02/10/25 02:00 60 12 90/55 L 02/10/25 01:00 59 L 13 100/70 02/10/25 00:00 70 02/10/25 00:00 66 12 02/10/25 00:00 93/55 L 02/09/25 23:00 65 13 85/57 L 02/09/25 22:00 69 16 99/60 L 02/09/25 21:00 98.1 F 67 12 102/51 L 02/09/25 20:14 103/55 L 02/09/25 20:00 98/55 L 02/09/25 20:00 60 14 02/09/25 19:06 61 16 02/09/25 19:00 90/46 L 02/09/25 18:52 89/53 L 02/09/25 18:45 61 16 02/09/25 18:09 60 17 02/09/25 17:00 63 20 02/09/25 17:00 99/58 L 02/09/25 16:27 62 15 02/09/25 16:00 60 02/09/25 15:00 89/57 L Pulse Ox O2 Del Method 02/10/25 13:45 95 Room Air 02/10/25 13:30 97 Room Air 02/10/25 09:02 97 Room Air 02/10/25 08:21 96 Room Air 02/10/25 08:00 02/10/25 08:00 02/10/25 07:56 02/10/25 07:18 94 02/10/25 07:03 95 02/10/25 07:00 02/10/25 06:49 02/10/25 06:48 96 02/10/25 06:00 93 02/10/25 05:00 95 02/10/25 04:00 95 02/10/25 04:00 02/10/25 03:00 93 02/10/25 02:00 93 02/10/25 01:00 93 02/10/25 00:00 02/10/25 00:00 92 02/10/25 00:00 02/09/25 23:00 94 02/09/25 22:00 95 Room Air 02/09/25 21:00 99 Room Air 02/09/25 20:14 02/09/25 20:00 02/09/25 20:00 96 02/09/25 19:06 96 02/09/25 19:00 02/09/25 18:52 02/09/25 18:45 96 02/09/25 18:09 97 02/09/25 17:00 02/09/25 17:00 02/09/25 16:27 02/09/25 16:00 02/09/25 15:00 Recovery Score Activity: Moves 4 extremities Respiration: Deep Breath/Cough Circulation: +/-20% PreAnes Value Consciousness: Fully Awake Oxygen Saturation: > 92% On Room Air Post Anesthesia Score: 10 Discharge Sedation Level of Care: Fast Track Phase II Post Sedation Plan On clinical assessment, the patient appears to have tolerated the sedation without complications. Patient is recovering as anticipated. Patient will continue to be monitored by nursing and may be discharged when sedation discharge criteria are met per below protocol. Upon Completions of procedure up to 15 minutes continue every 5 minute vital signs and the P.A.R. score; then discharge to a Phase I or Fast Track to Phase II per the following guidelines: * Discharge Patient to appropriate Phase II area if PAR is 8 or greater or return to pre- procedure baseline. The post - procedure orders will be as directed. * If PAR score is less than 8 or not return to pre-procedure baseline then patient will follow Phase I monitoring till PAR is reached for Phase II. The Phase I may be done in procedure room or may call to secure a Phase I area. * If naloxone or flumazenil are used for reversal, hold in Phase I for continued monitoring from when last reversal dose was given for a minimum of 60 minutes or longer pending the nurse and/or physician discretion of patient condition before discharge to Phase II. Please call the Sedation Physician to re-evaluate and complete post-note for discharge to Phase II area. Do NOT discharge from procedure sedation or Phase 1 until post- sedation evaluation note is complete by procedure /sedation MD Sedation Discharge Instructions to be given to the patient at discharge to home.
--- NOTE | 2025-02-10 14:00 | Electrocardiogram Report ---
Test Reason : Blood Pressure : */* mmHG Vent. Rate : 89 BPM Atrial Rate : 89 BPM P-R Int : 184 ms QRS Dur : 92 ms QT Int : 388 ms P-R-T Axes : 81 77 87 degrees QTcB Int : 472 ms Sinus rhythm with occasional Premature ventricular complexes and Premature atrial complexes ST depression, consider posterior injury ST elevation consider inferior injury or acute infarct ACUTE GA / STEMI Consider right ventricular involvement in acute inferior infarct Abnormal ECG When compared with ECG of 20-Jul-2024 16:36, Significant changes have occurred Confirmed by Jonathon Morrow ([id number]) on 02/10/2025 2:00:03 PM Referred By: REFERRED SELF Confirmed By: Jonathon Morrow
--- NOTE | 2025-02-10 14:43 | Electrocardiogram Report ---
Test Reason : Blood Pressure : */* mmHG Vent. Rate : 64 BPM Atrial Rate : 64 BPM P-R Int : 176 ms QRS Dur : 90 ms QT Int : 476 ms P-R-T Axes : 82 88 -72 degrees QTcB Int : 491 ms Normal sinus rhythm T wave abnormality, consider inferolateral ischemia Prolonged QT Abnormal ECG When compared with ECG of 08-Feb-2025 18:04, T wave inversion now evident in Inferior leads T wave inversion now evident in Lateral leads Confirmed by Jonathon Morrow ([id number]) on 02/10/2025 2:43:14 PM Referred By: REFERRED SELF Confirmed By: Jonathon Morrow
--- NOTE | 2025-02-10 15:03 | Post Operative Brief Note ---
Cardiology Brief Post Op Date of Surgery February 10, 2025 Pre & Post Diagnosis Coronary artery disease Procedure PCI of ostial to mid LAD with 2 overlapping JERMAINE Index Editor Elia Norton MD Production Painter Francheska Estimated Blood Loss 25 Findings See Below 90% ostial, diffuse proximal to mid 70% disease. Treated with 2 overlapping JERMAINE (2.5 x 18, 2.5 x 30 mm Nelson; postdilated with 2.75 NC). Tolerated procedure well. Anesthesia Type RN Sedation Complications none Disposition Accompanied Patient To Recovery: No Disposition: Surgical ICU
--- NOTE | 2025-02-10 19:14 | Cardiac Catheterization ---
[facility] Data: Oven Dauber Cardiac Status Clinical evaluation leading to the procedure CAD Presenation: STEMI Diagnostic Physicians Name: Elia Norton MD Closure Device Recommendations: PCI without planned CABG Cardiac Cath Procedure Full Procedure Date February 10, 2025 Pre-Procedure Diagnosis Pre-Procedure Diagnosis: CAD AUC Score AUC Score: 7 Post-Procedure Diagnosis Post-Procedure Diagnosis: Severe CAD, Successful PCI and Normal Intracardiac Pressures Procedure(s) Performed Procedure(s) Performed: Coronary Angiography, Left Heart Cath and Drug Eluting Stent Camp Counselor Elia Norton MD Sourcing Consultant(s) Kain Estimated Blood Loss Estimated Blood Loss: 20 Medication(s) Medication(s): Fentanyl, Heparin, Lidocaine 1%, Nicardipine, Nitroglycerin and Versed Medication(s): Ticagrelor Summary of Findings Indication: Staged PCI of severe LAD disease. Post primary PCI with single JERMAINE to circumflex for inferior STEMI 2 days ago. Access: 6 Fr right radial artery Catheters: EBU 3.5 guide Findings: LM -Short, normal caliber, no significant disease LAD -medium caliber, 80-90% ostial stenosis, diffuse proximal to mid disease up to 70% in the midsegment. 40 to 50% distal stenosis and 70% stenosis in small apical LAD. Circumflex -large caliber, 20 to 30% ostial, mid to distal stent widely patent. 40% ostial small to medium OM1. Medium left PLB without significant disease. RCA -(not visualized on current cath) on last procedure on 02/08/2025medium caliber, dominant, 50% mid segment stenosis, distal vessel/RPDA without significant disease LVEDP -9 -- PCI -- Antithrombotic therapy: Heparin, ticagrelor Procedure: Left main cannulated with EBU 3.5 guide Pre-procedure flow YOVANNY 3 [place] wire placed into circumflex Denitrator 50 wire passed across LAD disease into distal vessel Proximal/mid LAD disease predilated with 2.25 compliant balloon Proximal to mid LAD stented with 2.5 x 30 mm Nelson drug-eluting stent Stent postdilated with 2.75 NC Second JERMAINE (2.5 x 18 mm [place]) placed from LAD ostium and overlapping proximal aspect of initial stent Stent post-dilated with 2.75 noncompliant balloon IC vasodilators administered for spasm Post procedure YOVANNY 3 flow, stent well expanded with minimal residual stenosis and no apparent cardiac complications. Arterial Closure: TR band Summary: 1. Successful PCI of ostial to mid LAD with 2 overlapping drug-eluting stents (2.5 x 18, 2.5 x 30 mm Nelson; postdilated with 2.75 NC). Recommendations: Continue dual-antiplatelet therapy with aspirin, ticagrelor for at least 1 year. Likely extended DAPT in the setting of multivessel stenting, ostial LAD stent. Continue statin, and ASCVD risk factor modification Consult cardiac Rehab Hemodynamics Rest Ao:: 103/48/71 Final Ao: 86/41/65 LV: 102/9 Recommendations Recommendations: PCI without planned CABG Radiation Exposure (mGy) 1729 Contrast (mls) 120 Anesthesia Moderate 9890-5351 Procedural Complication(s) None Disposition ICU I attest to the content of the Intraoperative Record and any orders documented therein. Any exceptions are noted below. [facility] Card Cath Procedure Codes Cardiac Catheterization Procedure 1: Cardiovascular Cath Procedures: 36360 Left Heart Cath (+/-LV) Moderate Sedation Procedure 1: Sedation/Anesthesia: 07493 Mod Sedation by the same physician;Init15 Min Child Age 5 & Up Procedure 2: Sedation/Anesthesia: 00048 Mod Sedation by the same physician; Ea [id number] Minutes Stenting Procedure 1: Cardiovascular Stent Procedures: 79102 Perc transcatheter placement of intracoronary stent(s), with ang PG Care Time/CCT Total # of Minutes Spent Total Time Spent with Patient: Total time spent is greater than 50% in coordination of care (as documented) at patient's floor/unit and/or counseling patient:
--- NOTE | 2025-02-10 20:42 | Cardiology Progress Note ---
Date of Service February 10, 2025 Assessment & Plan (1) Acute UT: Plan: 02/08/2025 post JERMAINE to acute mid LCx occlusion staged PCI of ostial to mid LAD with 2 overlapping JERMAINE 02/10/2025. Residual 50% RCA 2. Ischemic cardiomyopathyEF 45%, inferolateral akinesis 3. Post UT nonsustained VT 4. DyslipidemiaLDL >200 5. Mild mitral regurgitationecho 01/2025 6. Borderline pulm hypertensionestimated PASP 38, RA 8 Doing well post PCI. No chest pain. Has had brief feelings of dyspnea - suspect secondary to brilinta. No access site complications Continue DAPT with aspirin, ticagrelor Continue losartan and metoprolol. Transition to toprol 25mg on discharge. Continue rosuvastatin 20 mg daily. Long-term likely will need additional agent to get to goal From a cardiac standpoint OK with transfer to telemetry tonight. Likely discharge tomorrow with cardiac follow-up in 2-3 weeks. Interested in cardiac rehab. Appreciate ICU and hospital medicine care Admission and Anticipated Discharge Date Admission Date: February 08, 2025 Subjective Seen late this afternoon after procedure. Feeling well denies any chest pain. No other new concerns. Telemetry reviewedPVCs, couplets initially on telemetry after PCI, less ventricular ectopy recently Review of Systems Review of Systems: All systems reviewed & are unremarkable except as noted in HPI & below Physical Exam Physical Exam: General: Comfortable HEENT: Sclerae anicteric Lungs: Clear to auscultation bilaterally, no crackles or wheezes Cardiac: Regular rate and rhythm, no murmurs. Vascular: Right radial artery access site with TR band in place. Abdomen: Soft, nontender Extremities: Well perfused, no peripheral edema Neuro: Nonfocal Psych: Alert orient x3, normal affect and mood Results & Data Vital Signs (Past 12 Hours) Vital Signs Temp Pulse Pulse Resp BP BP BP 02/10/25 18:30 148/85 H 02/10/25 18:24 63 20 02/10/25 18:01 135/56 L 02/10/25 18:00 68 14 02/10/25 17:54 66 16 02/10/25 17:45 129/68 02/10/25 17:30 128/66 02/10/25 17:18 68 19 02/10/25 17:16 135/66 02/10/25 17:15 67 23 02/10/25 17:09 68 20 02/10/25 17:00 117/79 02/10/25 16:54 65 24 02/10/25 16:45 137/66 02/10/25 16:39 69 14 02/10/25 16:31 112/67 02/10/25 16:25 98.1 F 02/10/25 16:21 67 18 02/10/25 16:18 68 18 02/10/25 16:15 132/60 02/10/25 16:15 132/60 02/10/25 16:06 64 22 02/10/25 16:01 140/91 02/10/25 15:48 65 15 02/10/25 15:45 123/76 02/10/25 15:36 62 17 02/10/25 15:31 126/70 02/10/25 15:30 64 12 02/10/25 15:30 61 02/10/25 15:16 137/59 L 02/10/25 15:15 67 12 02/10/25 15:06 65 26 H 02/10/25 15:01 126/67 02/10/25 15:01 126/67 02/10/25 15:01 126/67 02/10/25 14:57 67 19 02/10/25 14:46 81/66 L 02/10/25 14:45 66 16 02/10/25 14:30 135/72 02/10/25 14:24 63 18 02/10/25 14:15 123/82 02/10/25 14:12 66 18 02/10/25 14:00 65 02/10/25 14:00 59 L 16 110/61 02/10/25 13:45 59 L 16 93/60 L 02/10/25 13:30 66 16 115/66 02/10/25 09:02 61 16 116/63 Pulse Ox O2 Del Method 02/10/25 18:30 02/10/25 18:24 95 Room Air 02/10/25 18:01 02/10/25 18:00 95 02/10/25 17:54 96 02/10/25 17:45 02/10/25 17:30 02/10/25 17:18 95 Room Air 02/10/25 17:16 02/10/25 17:15 96 02/10/25 17:09 95 02/10/25 17:00 02/10/25 16:54 96 02/10/25 16:45 02/10/25 16:39 96 02/10/25 16:31 02/10/25 16:25 02/10/25 16:21 96 02/10/25 16:18 95 02/10/25 16:15 02/10/25 16:15 02/10/25 16:06 97 02/10/25 16:01 02/10/25 15:48 98 02/10/25 15:45 02/10/25 15:36 96 02/10/25 15:31 02/10/25 15:30 96 02/10/25 15:30 02/10/25 15:16 02/10/25 15:15 95 02/10/25 15:06 96 02/10/25 15:01 02/10/25 15:01 02/10/25 15:01 02/10/25 14:57 93 Room Air 02/10/25 14:46 02/10/25 14:45 96 02/10/25 14:30 02/10/25 14:24 96 02/10/25 14:15 02/10/25 14:12 96 Room Air 02/10/25 14:00 02/10/25 14:00 95 Room Air 02/10/25 13:45 95 Room Air 02/10/25 13:30 97 Room Air 02/10/25 09:02 97 Room Air PG Care Time/CCT Total # of Minutes Spent Total Time Spent with Patient: Total time spent is greater than 50% in coordination of care (as documented) at patient's floor/unit and/or counseling patient: Coding Level of Care Code 83035 SUB INP/OBS CARE 2/35MIN Diagnoses Acute UT I21.9
[2025-02-11 05:15] LABS: BUN Creatinine Ratio 28.8 (10-20); Calcium 8.9 mg/dl (8.6-10.3); Creatinine Clr Calc Pharmacy 54.7 ml/min; Magnesium 1.8 mg/dl (1.7-2.4); Potassium 3.8 mmol/L (3.5-5.1)
--- NOTE | 2025-02-11 11:49 | Hospitalist Progress Note ---
Date of Service February 11, 2025 Assessment & Plan (1) Acute RI: Plan: Patient was Brought to the hospital following chest pain, which started 2 hours prior to presentation. Stat EKG in the emergency department showed some T wave changes. She is now s/p JERMAINE of the circumflex, cath showed 100% occlusion, as well as JERMAINE to LAD, cath showed about 90% stenosis 2D echo EF 40-45%, wall hypokinesis. Continue Ticagrelor 90mg BIB, Rosuvastatin 20mg, Metoprolol 12.5mg BID Appreciate cardiology Hopefully d/c today, cardiac rehab and cardiology follow up (2) Basal cell carcinoma (BCC) in situ of skin: Plan: Recently had mohs procedure on the scalp Basal cell ca excision (3) HTN (hypertension): Plan: Blood pressure elevated on admission At home on hydrochlorothiazide 12.5 mg, will continue (4) ACS (acute coronary syndrome): Plan Hopefully d/c today Full code Admission and Anticipated Discharge Date Admission Date: February 08, 2025 Subjective Patient seen and examined, has been downgraded from ICU, stable postprocedure Review of Systems Review of Systems: All systems reviewed are negative, apart from the ones contained in the history. Physical Exam Physical Exam: The patient is awake, alert and oriented 3, well developed and well nourished, normocephalic and atraumatic, lying in bed and in no acute distress. HEENT--PERRL, EOMI, mucous membranes and oropharynx mildly dry Neck--supple. No JVD. No bruits. Thyroid normal, trachea midline, no adenopathy. Heart--normal S1 and S2. No murmurs, rubs or gallops. Lungs--clear bilaterally, no respiratory distress, no accessory muscle use. Abdomen--normal bowel sounds and soft. Extremities--no cyanosis or clubbing. No edema. Dermatologic--normal skin turgor, normal color, no abnormal lymph nodes, no rash. Neurologic--cranial nerves II through XII grossly intact. Rheumatologic--normal range of motion. Psychiatric--normal affect. Results & Data Results & Data Vital Signs (Past 12 Hours) Vital Signs Temp Pulse Pulse Resp BP BP Pulse Ox 02/11/25 08:45 98.2 F 65 20 102/57 L 94 02/11/25 08:16 57 L 02/11/25 04:29 99.7 F H 120/39 L 02/11/25 04:21 65 25 H 02/11/25 04:03 61 18 02/11/25 03:51 65 22 02/11/25 03:24 63 12 02/11/25 03:12 61 7 L 02/11/25 03:00 57 L 10 L 02/11/25 02:57 57 L 7 L 02/11/25 02:42 64 17 02/11/25 02:30 69 15 02/11/25 02:21 62 23 02/11/25 02:03 68 20 02/11/25 01:45 63 16 02/11/25 01:30 63 16 02/11/25 01:21 64 24 02/11/25 01:12 67 24 02/11/25 01:03 68 26 H 02/11/25 00:45 65 19 02/11/25 00:24 68 25 H 02/11/25 00:00 72 18 02/10/25 23:48 66 O2 Del Method 02/11/25 08:45 Room Air 02/11/25 08:16 02/11/25 04:29 02/11/25 04:21 02/11/25 04:03 02/11/25 03:51 02/11/25 03:24 02/11/25 03:12 02/11/25 03:00 02/11/25 02:57 02/11/25 02:42 02/11/25 02:30 02/11/25 02:21 02/11/25 02:03 02/11/25 01:45 02/11/25 01:30 02/11/25 01:21 02/11/25 01:12 02/11/25 01:03 02/11/25 00:45 02/11/25 00:24 02/11/25 00:00 02/10/25 23:48 PG Care Time/CCT Total # of Minutes Spent Total Time Spent with Patient: Total time spent is greater than 50% in coordination of care (as documented) at patient's floor/unit and/or counseling patient: Coding Level of Care Code 96940 SUB INP/OBS CARE 2/35MIN Diagnoses Acute RI I21.9 Basal cell carcinoma (BCC) in situ of skin D04.9 HTN (hypertension) I10 ACS (acute coronary syndrome) I24.9 Time Spent (min) 35
[2025-02-11 12:25] VITALS: RESP 18; TEMP 97.9; O2SAT 95
[2025-02-11 12:35] VITALS: BP 94/45; PULSE 66
--- NOTE | 2025-02-11 12:57 | Discharge Summary ---
Date of Service February 11, 2025 Admission HPI Per Admitting Provider Is a 74-year-old female with a history of hypertension, recent Mohrs procedure for Basal cell ca, who was brought to the hospital by ambulance on account of chest pain. According to the patient she was at home for a couple of hours prior to presentation when she started experiencing central chest pain, 8 out of 10 in intensity then radiating to her shoulders. However patient then called 911 and the ambulance came and brought her to the hospital. Here in the emergency department stat EKG was done which showed some ST changes. On-call interventional cardiology has been consulted and patient is awaiting evaluation. However it is likely she will be taken to the cardiac Carbide Tool Maker, and from day to ICU post cath. Currently vital signs are stable blood pressure 168/89 pulse 81 respiratory rate 20 saturating 95% on room air. Admission Exam (Per Admitting) Constitutional The patient is awake, alert and oriented 3, well developed and well nourished, normocephalic and atraumatic, lying in bed and in no acute distress. HEENT--PERRL, EOMI, mucous membranes and oropharynx mildly dry Neck--supple. No JVD. No bruits. Thyroid normal, trachea midline, no adenopathy. Heart--normal S1 and S2. No murmurs, rubs or gallops. Lungs--clear bilaterally, no respiratory distress, no accessory muscle use. Abdomen--normal bowel sounds and soft. Extremities--no cyanosis or clubbing. No edema. Dermatologic--normal skin turgor, normal color, no abnormal lymph nodes, no rash. Neurologic--cranial nerves II through XII grossly intact. Rheumatologic--normal range of motion. Psychiatric--normal affect. Discharge Data Consultations 02/08/25 15:23 ED Decision to Admit Stat 02/08/25 17:29 Consult Cardiology Routine 02/08/25 17:53 Consult Toucher Up Routine Procedures Performed Operation Date: 02/10/25 09:30 Actual Procedures p Cineradiography w/Routine Exam - Elia Norton MD p Drug Eluting Stent SGl Vessel - Elia Norton MD Hospital Course (1) Acute AL: Patient was Brought to the hospital following chest pain, which started 2 hours prior to presentation. Stat EKG in the emergency department showed some T wave changes. She is now s/p JERMAINE of the circumflex, cath showed 100% occlusion, as well as JERMAINE to LAD, cath showed about 90% stenosis 2D echo EF 40-45%, wall hypokinesis. Continue Ticagrelor 90mg BIB, Rosuvastatin 20mg, Metoprolol 12.5mg BID Appreciate cardiology Hopefully d/c today, cardiac rehab and cardiology follow up (2) Basal cell carcinoma (BCC) in situ of skin: Recently had mohs procedure on the scalp Basal cell ca excision (3) HTN (hypertension): Blood pressure elevated on admission At home on hydrochlorothiazide 12.5 mg, will continue (4) ACS (acute coronary syndrome): Plan Hopefully d/c today Full code Coding Level of Care Code 60426 INP/OBS DISCH >30 MIN Diagnoses Acute AL I21.9 Basal cell carcinoma (BCC) in situ of skin D04.9 HTN (hypertension) I10 ACS (acute coronary syndrome) I24.9 Time Spent (min) 35
--- NOTE | 2025-02-11 13:08 | Cardiology Progress Note ---
Date of Service February 11, 2025 Assessment & Plan (1) Acute [place]: Plan: 02/08/2025 post JERMAINE to acute mid LCx occlusion staged PCI of ostial to mid LAD with 2 overlapping JERMAINE 02/10/2025. Residual 50% RCA 2. Ischemic cardiomyopathyEF 45%, inferolateral akinesis 3. Post [place] nonsustained VT 4. DyslipidemiaLDL >200 5. Mild mitral regurgitationecho 01/2025 6. Borderline pulm hypertensionestimated PASP 38, RA 8 Doing well post PCI. No chest pain. Has had brief feelings of dyspnea - suspect secondary to Brilintawill monitor No access site complications From a cardiac standpoint okay with discharge today Continue DAPT with aspirin, ticagrelor Continue losartan, Toprol-XL 25mg on discharge. Continue rosuvastatin 20 mg daily. Long-term likely will need additional agent to get to goal Follow-up with me in 2 weeks. Interested in cardiac rehab. Admission and Anticipated Discharge Date Admission Date: February 08, 2025 Subjective Feeling well this morning. Denies any recurrent chest pain. No shortness of breath. Telemetry reviewedbrief SVT this morning. Otherwise few PVCs. Review of Systems Review of Systems: All systems reviewed & are unremarkable except as noted in HPI & below Physical Exam Physical Exam: General: Comfortable HEENT: Sclerae anicteric Lungs: Clear to auscultation bilaterally, no crackles or wheezes Cardiac: Regular rate and rhythm, no murmurs. Vascular: Right radial artery access site with no ecchymosis, hematoma. Distal pulse and sensation intact. Abdomen: Soft, nontender Extremities: Well perfused, no peripheral edema Neuro: Nonfocal Psych: Alert orient x3, normal affect and mood Results & Data Vital Signs (Past 12 Hours) Vital Signs Temp Pulse Pulse Resp BP BP BP 02/11/25 13:04 97.9 F 66 18 94/45 L 110/61 02/11/25 12:34 66 94/45 L 02/11/25 12:24 97.9 F 60 18 94/43 L 02/11/25 08:45 98.2 F 65 20 102/57 L 02/11/25 08:16 57 L 02/11/25 04:29 99.7 F H 120/39 L 02/11/25 04:21 65 25 H 02/11/25 04:03 61 18 02/11/25 03:51 65 22 02/11/25 03:24 63 12 02/11/25 03:12 61 7 L 02/11/25 03:00 57 L 10 L 02/11/25 02:57 57 L 7 L 02/11/25 02:42 64 17 02/11/25 02:30 69 15 02/11/25 02:21 62 23 02/11/25 02:03 68 20 02/11/25 01:45 63 16 02/11/25 01:30 63 16 02/11/25 01:21 64 24 02/11/25 01:12 67 24 Pulse Ox O2 Del Method 02/11/25 13:04 95 02/11/25 12:34 02/11/25 12:24 95 Room Air 02/11/25 08:45 94 Room Air 02/11/25 08:16 02/11/25 04:29 02/11/25 04:21 02/11/25 04:03 02/11/25 03:51 02/11/25 03:24 02/11/25 03:12 02/11/25 03:00 02/11/25 02:57 02/11/25 02:42 02/11/25 02:30 02/11/25 02:21 02/11/25 02:03 02/11/25 01:45 02/11/25 01:30 02/11/25 01:21 02/11/25 01:12 PG Care Time/CCT Total # of Minutes Spent Total Time Spent with Patient: Total time spent is greater than 50% in coordination of care (as documented) at patient's floor/unit and/or counseling patient: Coding Level of Care Code 65592 SUB INP/OBS CARE 2/35MIN Diagnoses Acute [place] I21.9
== END 2025-02-11 13:29 | disposition home or self-care (01) | DRG 322 ==
LOC: ED 15:16 → CC 16:23 → 1E 16:23
DX: I25.10 Atherosclerotic heart disease of native coronary artery without angina pectoris; I25.5 Ischemic cardiomyopathy; I21.21 ST elevation (STEMI) myocardial infarction involving left circumflex coronary artery; D64.9 Anemia, unspecified; Z91.040 Latex allergy status; Z82.49 Family history of ischemic heart disease and other diseases of the circulatory system; Y93.01 Activity, walking, marching and hiking; Z88.8 Allergy status to other drugs, medicaments and biological substances; Z79.899 Other long term (current) drug therapy; Z98.890 Other specified postprocedural states; I10 Essential (primary) hypertension; C44.41 Basal cell carcinoma of skin of scalp and neck; E78.5 Hyperlipidemia, unspecified; Z91.048 Other nonmedicinal substance allergy status; Y93.H9 Activity, other involving exterior property and land maintenance, building and construction; I47.20 Ventricular tachycardia, unspecified